=== PATIENT | female | born 1945 ===

== ENCOUNTER 2017-02-27 15:29 | Inpatient (IN) ==
--- OUTSIDE RECORDS SUMMARY | 2017-02-27 16:19 | External Medical Summary | Summary of Care ---
:1945 Author Name Chiqui Ferreira M.D. Address Unavailable Unavailable , Care Team Providers Name Role Phone Chiqui Ferreira M.D. Unavailable Unavailable Juan Pablo Warren Unavailable Unavailable Unavailable Unavailable Unavailable Functional Status Functional Status Health Issues Name Dates Details Functional status health issues are not documented Status: Cognitive Status Health Issues Name Dates Details Cognitive status health issues are not documented Status: Problems Name Dates Details Encounter for screening for malignant neoplasm of colon (V76.51, Z12.11) Status: Active Iron (Fe) deficiency anemia (280.9, D50.9) Status: Active B12 deficiency (266.2, E53.8) Status: Active Diabetes mellitus (250.00, E11.9) Status: Active Hypertension (401.9, I10) Status: Active Asthma (493.90, J45.909) Status: Active Chronic obstructive pulmonary disease (496, J44.9) Status: Active Difficulty breathing (786.09, R06.89) Status: Active Hypothyroidism (244.9, E03.9) Status: Active Medications Name Dates Details Advair Diskus 250-50 MCG/DOSE Inhalation Aerosol Powder Breath Activated USE ONE INHALATION TWICE A DAY Quantity: 60 Refills: 12 Miguel Angel Ferreira M.D. Start 21-Jan-2011 Active MetFORMIN HCl - 1000 MG Oral Tablet Take one tablet by mouth twice a day Quantity: 60 Refills: 11 Miguel Angel Ferreira M.D. Start 27-Mar-2011 Active Levothyroxine Sodium 112 MCG Oral Tablet TAKE 1 TABLET DAILY. Quantity: 30 Refills: 11 Miguel Angel Ferreira M.D. Start 27-Mar-2011 Active Furosemide 40 MG Oral Tablet TAKE ONE TABLET BY MOUTH DAILY IN THE MORNING Quantity: 30 Refills: 0 Miguel Angel Ferreira M.D. Start 18-Nov-2011 Active Cyanocobalamin 1000 MCG/ML Injection Solution INJECT INTRAMUSCULARLY EVERY TWO WEEKS DIRECTED Quantity: 12 Refills: 0 Miguel Angel Ferreira M.D. Start 02-Apr-2012 Active Metoprolol Succinate ER 50 MG Oral Tablet Extended Release 24 Hour TAKE 1 TABLET DAILY. Quantity: 30 Refills: 12 Hanna ChapmanMiguel Angel Iverson Chiqui Start Active Syringes 3ml syringe 25gauge, 1-1and 1/2 inch needle to use for monthly B12 injections Quantity: 30 Refills: 11 Marileethi AriMiguel Angel Iverson Chiqui Start 15-Oct-2012 Active Klor-Con M20 20 MEQ Oral Tablet Extended Release take one tablet by mouth every day Quantity: 30 Refills: 11 Hanna JulesMiguel Angel Start 05-Jan-2013 Active Allergies and Adverse Reactions Name Dates Details No Known Drug Allergies (Allergy) Status: Active Procedures Procedure Dates Details Procedures not documented Immunization Name Dates Details Fluzone Quadrivalent 0.5 ML Intramuscular Suspension on: 23-Dec-2012 Lot #: [id number] Social History Name Dates Details - Status: Smoking Status Name Dates Details Former smoker Vital Signs Date Test Result Details 03-Jan-2016 10:51 BP Systolic 136 mm[Hg] Status: Comments: Location: ; Position: BP Diastolic 82 mm[Hg] Status: Comments: Location: ; Position: Heart Rate 78 /min Status: Comments: Location: ; Physical Findings 20 Status: Comments: Respiration Height 60 in Status: Weight 170 lb Status: Physical Findings 98 Status: Comments: O2 Saturation Body Mass Index Calculated 33.2 kg/m2 Status: Body Surface Area Calculated 1.74 m2 Status: Results Date Description Value Details Results not documented Plan of Care Name Dates Details Planned Observations Planned Goals not documented Planned Encounters Appointment; Provider: Miguel Angel Ferreira M.D. On 06-Mar-2016 10:45 Interventions Provided Medication ChangesLevothyroxine Sodium 112 MCG Oral Tablet - RenewMetFORMIN HCl - 1000 MG Oral Tablet - Renew Instructions Name Dates Details Instructions not documented Encounters Appointment; Miguel Angel Ferreira M.D. On 22-Nov-2015 Encounter Diagnosis: Problem not documented 10:45
--- OUTSIDE RECORDS SUMMARY | 2017-02-27 16:19 | External Medical Summary | Summary of Care ---
[...] neoplasm of colon (V76.51, Z12.11) Status: Active Asthma (493.90, J45.909) Status: Active Difficulty breathing (786.09, R06.89) Status: Active B12 deficiency (266.2, E53.8) Status: Active Hypertension (401.9, I10) Status: Active Chronic obstructive pulmonary disease (496, J44.9) Status: Active Diabetes mellitus (250.00, E11.9) Status: Active Hypothyroidism (244.9, E03.9) Status: Active Iron (Fe) deficiency anemia (280.9, D50.9) Status: Active Medications Name Dates Details Advair [...] 12 Refills: 0 Miguel Angel Ferreira M.D. 02-Apr-2012 Active Metoprolol Succinate ER 50 MG Oral Tablet Extended Release 24 Hour TAKE 1 TABLET DAILY. Quantity: 30 Refills: 11 Miguel Angel Ferreira M.D. Start Active Syringes 3ml syringe 25gauge, 1-1and 1/2 inch needle to use for monthly B12 injections Quantity: 30 Refills: 11 Miguel Angel Ferreira M.D. Start 15-Oct-2012 Active Klor-Con M20 20 MEQ Oral Tablet Extended Release take one tablet by mouth every day Quantity: 30 Refills: 11 Miguel Angel Ferreira M.D. Start 05-Jan-2013 Active Pioglitazone HCl - 30 MG Oral Tablet take one tablet by mouth every day Quantity: 30 Refills: 10 Miguel Angel Ferreira M.D. Start 06-Mar-2016 Active Allergies and Adverse Reactions Name Dates Details No Known Drug Allergies (Allergy) Status: Active Past Medical History Name Dates Details B12 deficiency (266.2, E53.8) Status: Active Chronic obstructive pulmonary disease (496, J44.9) Status: Active Diabetes mellitus (250.00, E11.9) Status: Active Hypertension (401.9, I10) Status: Active Hypothyroidism (244.9, E03.9) Status: Active Procedures Procedure Dates Details History of Tonsillectomy History of Appendectomy History of Total Abdominal Hysterectomy History of Knee Replacement Procedures not documented Immunization Name Dates Details Fluzone Quadrivalent 0.5 ML Intramuscular Suspension on: 23-Dec-2012 Lot #: [id number] Family History Mother Name Dates Details Family history of myocardial infarction (V17.3, Z82.49) Status: Active Father Name Dates Details Family history of CHF (NYHA class III, ACC/AHA stage C) (428.0, I50.9) Status: Active Social History Name Dates Details - Status: Smoking Status Name Dates Details Former smoker Vital Signs Date Test Result Details 06-Mar-2016 10:42 BP Systolic 150 mm[Hg] Status: Comments: Location: ; Position: BP Diastolic 82 mm[Hg] Status: Comments: Location: ; Position: Heart Rate 113 /min Status: Comments: Location: ; Physical Findings 97 Status: Comments: O2 Saturation Results Date Description Value Details 06-Mar-2016 07:57 CBC w/ Auto Diff 7150 Comments: Fastin hours WBC 8.9 K/uL Range: 4.5-11.0 RBC 4.59 mil/uL Range: 3.60-5.00 HGB 12.5 g/dL Range: 12.0-16.0 HCT 38.7 % Range: 36.0-48.0 MCV 84.3 fL Range: 80.0-99.0 MCH 27.3 pg Range: 27.3-32.5 MCHC 32.4 % Range: 32.0-36.0 RDW 16.1 % (Above high threshold) Range: 11.6-14.8 PLATELETS 250 K/uL Range: 150-400 MPV 9.9 fL Range: 6.0-11.0 %NEUTRO 63.2 % Range: 37.0-80.0 %LYMPHS 27.2 % Range: 13.0-50.0 %MONO 4.8 % Range: 0.0-12.0 %EOS 3.0 % Range: 0.0-7.0 %BASO 0.5 % Range: 0.0-2.5 %JAGRUTI 1.3 % Range: 0.0-5.0 NEUTRO 5.6 K/uL Range: 2.0-6.9 LYMPHS 2.4 K/uL Range: 0.6-3.4 MONOS 0.4 K/uL Range: 0.0-0.9 EOS 0.3 K/uL Range: 0.0-0.7 BASO 0.0 K/uL Range: 0.0-0.2 08:22 GLUCOSE 1100 Comments: Fastin hours GLUCOSE 239 mg/dL (Above high threshold) Range: 70-100 08:22 CREATININE, SERUM 1135 Comments: Fastin hours CREATININE, SERUM 0.75 mg/dL Range: 0.55-1.02 EST GFR, NON-AFR CHADIAN >60 ml/min Range: >60 Comments: EST GFR is reported in ml/min per 1.73 m2 of body surface area. ----- 08:22 ELECTROLYTES 1230 Comments: Fastin hours SODIUM 139 mmol/L Range: 133-144 POTASSIUM 3.9 mmol/L Range: 3.5-5.1 CHLORIDE 101 mmol/L Range: 98-110 CARBON DIOXIDE 28.0 mmol/L Range: 23.0-33.0 ANION GAP 10 mmol/L Range: 6-16 08:22 LIPID PROFILE 1184 Comments: Fastin hours CHOLESTEROL 183 mg/dL Range: <200 TRIGLYCERIDES 79 mg/dL Range: 30-200 HDL Cholesterol 59 mg/dL Range: >39 NON HDL CHOLESTEROL 124 CARDIAC RSK FACTOR 3.1 units (Below low threshold) Range: 4.4-5.0 LDL - CALCULATED 108 mg/dL Range: 0-130 08:55 HEMOGLOBIN A1C 3507 Comments: Fastin hours Hemoglobin A1C 10.0 % ESTIMATED AVG. GLUCOSE 240 Plan of Care Name Dates Details Planned Observations Planned Goals not documented Planned Encounters Appointment; Provider: Miguel Angel Ferreira M.D. On 04-Jun-2016 10:45 Interventions Provided Medication ChangesMetoprolol Succinate ER 50 MG Oral Tablet Extended Release 24 Hour - RenewPioglitazone HCl - 30 MG Oral Tablet - Start Instructions Name Dates Details Instructions not documented Encounters Appointment; Miguel Angel Ferreira M.D. On 03-Jan-2016 Encounter Diagnosis: Problem not documented 11:00 Appointment; Miguel Angel Ferreira M.D. On 22-Nov-2015 Encounter Diagnosis: Problem not documented 10:45
--- OUTSIDE RECORDS SUMMARY | 2017-02-27 16:19 | External Medical Summary | Summary of Care ---
[...] neoplasm of colon (V76.51, Z12.11) Status: Active Difficulty breathing (786.09, R06.89) Status: Active Asthma (493.90, J45.909) Status: Active Iron (Fe) deficiency anemia (280.9, D50.9) Status: Active Chronic obstructive pulmonary disease (496, J44.9) Status: Active B12 deficiency (266.2, E53.8) Status: Active Diabetes mellitus (250.00, E11.9) Status: Active Hypertension (401.9, I10) Status: Active Medications Name Dates Details Advair Diskus 250-50 MCG/DOSE Inhalation Aerosol Powder Breath Activated USE ONE INHALATION TWICE A DAY Quantity: 60 Refills: 12 Miguel Angel Ferreira M.D. Start 21-Jan-2011 Active MetFORMIN HCl - 1000 MG Oral Tablet TAKE 1 TABLET TWICE DAILY. Quantity: 60 Refills: 6 Miguel Angel Ferreira M.D. Start 27-Mar-2011 Active Levothyroxine Sodium 112 MCG Oral Tablet TAKE 1 TABLET DAILY. Quantity: 30 Refills: 6 Miguel Angel Ferreira M.D. Start 27-Mar-2011 Active [...] 1 TABLET DAILY. Quantity: 30 Refills: 12 Sourk M.DMiguel Angel Iverson Start Active Syringes 3ml syringe 25gauge, 1-1and 1/2 inch needle to use for monthly B12 injections Quantity: 30 Refills: 11 Miguel Angel Ferreira M.D. Start 15-Oct-2012 Active Klor-Con M20 20 MEQ Oral Tablet Extended Release take one tablet by mouth every day Quantity: 30 Refills: Miguel Angel Mckeon M.D. Start 05-Jan-2013 Active Allergies and Adverse Reactions Name Dates Details No Known Drug Allergies (Allergy) Status: Active Procedures Procedure Dates Details Procedures not documented Immunization Name Dates Details Fluzone Quadrivalent 0.5 ML Intramuscular Suspension on: 23-Dec-2012 Lot #: [id number] Social History Name Dates Details - Status: Smoking Status Name Dates Details Former smoker Vital Signs Date Test Result Details 22-Nov-2015 10:47 BP Systolic 150 mm[Hg] Status: Comments: Location: ; Position: BP Diastolic 84 mm[Hg] Status: Comments: Location: ; Position: Heart Rate 80 /min Status: Comments: Location: ; Physical Findings 98 Status: Comments: O2 Saturation Results Date Description Value Details 22-Nov-2015 11:45 CBC w/ Auto Diff 7150 WBC 8.7 K/uL Range: 4.5-11.0 RBC 4.49 mil/uL Range: 3.60-5.00 HGB 12.0 g/dL Range: 12.0-16.0 HCT 36.8 % Range: 36.0-48.0 MCV 81.9 fL Range: 80.0-99.0 MCH 26.8 pg (Below low threshold) Range: 27.3-32.5 MCHC 32.7 % Range: 32.0-36.0 RDW 15.2 % (Above high threshold) Range: 11.6-14.8 PLATELETS 267 K/uL Range: 150-400 MPV 9.2 fL Range: 6.0-11.0 %NEUTRO 74.3 % Range: 37.0-80.0 %LYMPHS 18.5 % Range: 13.0-50.0 %MONO 3.9 % Range: 0.0-12.0 %EOS 1.6 % Range: 0.0-7.0 %BASO 0.5 % Range: 0.0-2.5 %JAGRUTI 1.2 % Range: 0.0-5.0 NEUTRO 6.5 K/uL Range: 2.0-6.9 LYMPHS 1.6 K/uL Range: 0.6-3.4 MONOS 0.3 K/uL Range: 0.0-0.9 EOS 0.1 K/uL Range: 0.0-0.7 BASO 0.0 K/uL Range: 0.0-0.2 12:13 Comprehensive Metabolic Panel 1212 SODIUM 137 mmol/L Range: 133-144 POTASSIUM 4.1 mmol/L Range: 3.5-5.1 CHLORIDE 102 mmol/L Range: 98-110 CARBON DIOXIDE 26.8 mmol/L Range: 23.0-33.0 ANION GAP 8 mmol/L Range: 6-16 BUN 9 mg/dL Range: 7-18 CREATININE, SERUM 0.75 mg/dL Range: 0.55-1.02 BUN:CREATININE RATIO 12 EST GFR, >60 ml/min Range: >60 EST GFR, NON-AFR MALDIVIAN >60 ml/min Range: >60 Comments: EST GFR is reported in ml/min per 1.73 m2 of body surface area. ----- GLUCOSE 260 mg/dL (Above high Range: 70-100 threshold) ALK PHOSPHATASE 83 U/L Range: 46-116 TOTAL BILIRUBIN 0.30 mg/dL Range: 0.20-1.00 AST 15 U/L Range: 8-35 ALT 26 U/L Range: 14-59 ALBUMIN 3.5 g/dL Range: 3.4-5.0 TOTAL PROTEIN 7.1 g/dL Range: 6.4-8.2 A/G RATIO 1.0 units Range: 1.0-1.8 CALCIUM 8.6 mg/dL Range: 8.5-10.1 12:22 VITAMIN B12 3606 VITAMIN B12 475 pg/mL Range: 211-911 12:22 THYROID STIM. HORMONE 3602 THYROID STIM. HORMONE 2.889 uIU/mL Range: 0.550-4.780 Comments: No established reference ranges for infants and children &lt ;2 years of age----- 12:22 FREE T4 3604 FREE T4 0.75 ng/dL (Below low threshold) Range: 0.80-1.67 12:22 HEMOGLOBIN A1C 3507 Hemoglobin A1C 10.9 % ESTIMATED AVG. GLUCOSE 266 Plan of Care Name Dates Details Planned Observations Planned Goals not documented Planned Encounters Appointment; Provider: Miguel Angel Ferreira M.D. On 03-Jan-2016 11:00 Instructions Name Dates Details Instructions not documented Encounters Appointment; Miguel Angel Ferreira M.D. On 22-Nov-2015 Encounter Diagnosis: Problem not documented 10:45
--- OUTSIDE RECORDS SUMMARY | 2017-02-27 16:19 | External Medical Summary | Continuity of Care Document ---
:1945 Author Organization [facility] Allergies There is no data. Medications There is no data. 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 Encounters ACCT Visit Discharge Status Pt. Type Provider Facility Loc./Unit Complaint No. Date/Time [id number] 08/24/2014 09/23/2014 [place] [id number] 13:00:00 14:00:00 [facility] [id number] 03/28/2014 03/28/2014 [place] [id number] 10:15:00 23:59:59 [facility] [id number] 01/18/2014 03/27/2014 [place] [id number] 10:00:00 00:01:00 [facility] [id number] 01/06/2013 01/08/2013 DIS Outpatient [id number] 10:30:00 12:00:00 [id number] 05/19/2015 05/19/2015 CLS Outpatient [place] 09:26:00 23:59:59 [facility]
--- OUTSIDE RECORDS SUMMARY | 2017-02-27 16:19 | External Medical Summary | Summary of Care ---
[...] (Fe) deficiency anemia (280.9, D50.9) Status: Active Hypertension (401.9, I10) Status: Active Diabetes mellitus (250.00, E11.9) Status: Active Chronic obstructive pulmonary disease (496, J44.9) Status: Active Medications Name Dates Details Advair [...] WEEKS DIRECTED Quantity: 12 Refills: 0 Miguel nAgel Ferreira M.D. Start 02-Apr-2012 Active Metoprolol Succinate ER 50 MG Oral Tablet Extended Release 24 Hour TAKE 1 TABLET DAILY. Quantity: 30 Refills: 12 Miguel Angel Ferreira M.D. Start Active Syringes 3ml syringe 25gauge, 1-1and 1/2 inch needle to use for monthly B12 injections Quantity: 30 Refills: 11 Miguel Angel Ferreira M.D. Start 15-Oct-2012 Active Klor-Con M20 20 MEQ Oral Tablet Extended Release take one tablet by mouth every day Quantity: 30 Refills: 11 Miguel Angel Ferreira M.D. Start 05-Jan-2013 Active Allergies and Adverse Reactions Name Dates Details No Known Drug Allergies (Allergy) Status: Active Procedures Procedure Dates Details CBC w/ Auto Diff 7150 Ordered: 22-Nov-2015 VITAMIN B12 3606 Ordered: 22-Nov-2015 THYROID STIM. HORMONE 3602 Ordered: 22-Nov-2015 FREE T4 3604 Ordered: 22-Nov-2015 Comprehensive Metabolic Panel 1212 Ordered: 22-Nov-2015 HEMOGLOBIN A1C 3507 Ordered: 22-Nov-2015 Immunization Name Dates Details Fluzone Quadrivalent 0.5 ML Intramuscular Suspension on: 23-Dec-2012 Lot #: [id number] Social History Name Dates Details - Status: Smoking Status Name Dates Details Former smoker Vital Signs Date Test Result Details 22-Nov-2015 10:47 BP Systolic 150 mm[Hg] Status: Comments: Location: ; Position: BP Diastolic 84 mm[Hg] Status: Comments: Location: ; Position: Heart Rate 80 /min Status: Comments: Location: ; Physical Findings 98 Status: Comments: O2 Saturation Results Date Description Value Details Results not documented Plan of Care Name Dates Details Planned Observations Planned Goals not documented Planned Encounters Appointment; Provider: Miguel Angel Ferreira M.D. On 03-Jan-2016 11:00 Interventions Provided Labs/Procedures/ImagingCBC w/ Auto Diff 7150; To be Done: 22 Nov 2015Comprehensive Metabolic Panel 1212; To be Done: 22 Nov 2015FREE T4 3604; To be Done: 22 Nov 2015HEMOGLOBIN A1C 3507; To be Done: 22 Nov 2015THYROID STIM. HORMONE 3602; To be Done: 22 Nov 2015VITAMIN B12 3606; To be Done: 22 Nov 2015 Instructions Name Dates Details Instructions not documented Encounters Appointment; Miguel Angel Ferreira M.D. On 22-Nov-2015 Encounter Diagnosis: Problem not documented 10:45
--- OUTSIDE RECORDS SUMMARY | 2017-02-27 16:19 | External Medical Summary | Summary of Care ---
[...] obstructive pulmonary disease (496, J44.9) Status: Active Hypothyroidism (244.9, E03.9) Status: Active Iron (Fe) deficiency anemia (280.9, D50.9) Status: Active Diabetes mellitus (250.00, E11.9) Status: Active Medications Name Dates Details Advair [...] 1 TABLET DAILY. Quantity: 30 Refills: 11 Marileethi ShimaZayraZoëMiguel Angel Iverson Start Active Syringes 3ml syringe 25gauge, 1-1and 1/2 inch needle to use for monthly B12 injections Quantity: 30 Refills: 11 Marileethi ShimaMiguel Angel Sánchez Start 15-Oct-2012 Active Klor-Con M20 20 MEQ Oral Tablet Extended Release take one tablet by mouth every day Quantity: 30 Refills: 11 Marileethi AriMiguel Angel Iverson Start 05-Jan-2013 Active Pioglitazone HCl - 30 MG Oral Tablet take one tablet by mouth every day Quantity: 30 Refills: 10 Marileethi ShimaMiguel Angel Sánchez Start 06-Mar-2016 Active Allergies and Adverse Reactions [...] ML Intramuscular Suspension on: 23-Dec-2012 Lot #: [id number] Family History Mother Name Dates Details Family history of myocardial infarction (V17.3, Z82.49) Status: Active Father Name Dates Details Family history of CHF (NYHA class III, ACC/AHA stage C) (428.0, I50.9) Status: Active Social History Name Dates Details - Status: Smoking Status Name Dates Details Former smoker Vital Signs Date Test Result Details No Known Vitals to report Results Date Description Value Details Results not documented Plan of Care Name Dates Details Planned Observations Planned Goals not documented Instructions Name Dates Details Instructions not documented Encounters Appointment; Miguel Angel Ferreira M.D. On 06-Mar-2016 Encounter Diagnosis: Problem not documented 10:45 Appointment; Miguel Angel Ferreira M.D. On 03-Jan-2016 Encounter Diagnosis: Problem not documented 11:00 Appointment; Miguel Angel Ferreira M.D. On 22-Nov-2015 Encounter Diagnosis: Problem not documented 10:45
--- OUTSIDE RECORDS SUMMARY | 2017-02-27 16:19 | External Medical Summary | Summary of Care ---
[...] Active Diabetes mellitus (250.00, E11.9) Status: Active Asthma (493.90, J45.909) Status: Active Chronic obstructive pulmonary disease (496, J44.9) Status: Active Difficulty breathing (786.09, R06.89) Status: Active Hypothyroidism (244.9, E03.9) Status: Active Hypertension (401.9, I10) Status: Active Medications Name Dates Details Advair Diskus 250-50 MCG/DOSE Inhalation Aerosol Powder Breath Activated USE ONE INHALATION TWICE A DAY Quantity: 60 Refills: 12 Miguel Angel Ferreira M.D. Start 21-Jan-2011 Active Furosemide 40 MG Oral Tablet TAKE [...] by mouth every day Quantity: 30 Refills: Cong Ferreira Jorge AMiguel Angel Jaqueline 05-Jan-2013 Active Levothyroxine Sodium 112 MCG Oral Tablet TAKE 1 TABLET DAILY. Quantity: 30 Refills: Cong Marileethi Jorge AMiguel Angel Jaqueline 27-Mar-2011 Active MetFORMIN HCl - 1000 MG Oral Tablet Take one tablet by mouth twice a day Quantity: 60 Refills: Cong Hanna Jules Miguel Angel Florian Jaqueline 27-Mar-2011 Active Allergies and Adverse Reactions Name Dates Details No Known Drug Allergies (Allergy) Status: Active Procedures Procedure Dates Details HEMOGLOBIN A1C 3507 Ordered: 20-Feb-2016 GLUCOSE 1100 Ordered: 20-Feb-2016 ELECTROLYTES 1230 Ordered: 20-Feb-2016 CREATININE, SERUM 1135 Ordered: 20-Feb-2016 LIPID PROFILE 1184 Ordered: 20-Feb-2016 Immunization Name Dates Details Fluzone Quadrivalent 0.5 ML Intramuscular Suspension on: 23-Dec-2012 Lot #: [id number] Social History Name Dates Details - Status: Smoking Status Name Dates Details Former smoker Vital Signs Date Test Result Details No Known Vitals to report Results Date Description Value Details 06-Mar-2016 07:57 [...] Range: 0.0-0.7 BASO 0.0 K/uL Range: 0.0-0.2 Plan of Care Name Dates Details Planned Observations Planned Goals not documented Planned Encounters Appointment; Provider: Miguel Angel Ferreira M.D. On 06-Mar-2016 10:45 Instructions Name Dates Details Instructions not documented Encounters Appointment; Miguel Angel Ferreira M.D. On 03-Jan-2016 Encounter Diagnosis: Problem not documented 11:00 Appointment; Miguel Angel Ferreira M.D. On 22-Nov-2015 Encounter Diagnosis: Problem not documented 10:45
--- OUTSIDE RECORDS SUMMARY | 2017-02-27 16:19 | External Medical Summary ---
:1945 Author Name GENERATED, SYSTEM Care Team Providers Name Role Phone MD ROGERS DAVID Primary Care Provider [phone] Reason For Visit Chief Complaint KNEE, LEG, BACK PAIN,WHOLE BODY BONE SCAN [place] [id number] - BONE SCA Social History Functional Status Vital Signs Results Problems Encounter Diagnosis No relevant problems exist. Encounters Encounter Diagnosis No relevant problems exist. Plan of Care Procedures No relevant procedures performed. Immunizations No immunizations administered or ordered. Hospital Course Hospital Discharge Instructions Allergies, Adverse Reactions, Alerts Latex Allergy has not been assessed.IV Contrast Allergy has not been assessed. Medication Medication reconciliation has not been performed.
[2017-02-27] MEDS ORDERED: HALOPERIDOL 0.5 MG TABLET PO PRN (16:38)
[2017-02-27] MEDS ORDERED: LORazepam 0.5 MG TABLET PO PRN (16:38)
[2017-02-27] MEDS ORDERED: LOPERAMIDE 2 MG CAPSULE PO PRN (16:40)
[2017-02-27] MEDS ORDERED: POLYETHYL GLYCOL 3350 17gm PACKET PO PRN (16:40)
[2017-02-27 18:07] VITALS: BMI 29.2
[2017-02-27] MEDS: LORazepam 1 MG TABLET PO SCH (20:06)
[2017-02-27] MEDS: FAMOTIDINE 20 MG TABLET PO SCH (20:06)
[2017-02-27] MEDS: METFORMIN 1,000 MG TABLET PO SCH (20:51)
[2017-02-28] MEDS: LORazepam 1 MG TABLET PO SCH (08:47)
[2017-02-28] MEDS: LEVOTHYROXINE 112 MCG TABLET PO SCH (08:47)
[2017-02-28] MEDS: METFORMIN 1,000 MG TABLET PO SCH ×2 (08:47→17:23)
[2017-02-28] MEDS: FAMOTIDINE 20 MG TABLET PO SCH ×3 (08:47→21:14)
[2017-02-28] MEDS: PIOGLITAZONE 30 MG TABLET PO SCH (08:48)
--- NOTE | 2017-02-28 09:24 | 24 Hour Neuropsychiatic Eval ---
Date of Admission: 02/27/17 16:09 Chief complaint: Recent agitation History of Present Illness: Patient is a 71-year-old , retired female who was admitted to [facility] from the [facility] on 02/27/17. Per hospitalist: "On February 19, 2017. Patient was admitted to [facility] following encephalopathy, confusion and findings of influenza A. She was medically treated and medically cleared, however, continued to have confusion." Patient lives at home with her long-time in [place] and he works part- time, leaving the patient home alone. Patient's son is on the unit and states that he has not seen the patient in person in many (10+) years but has had conversations with her on the phone and she would repeat things to him over and over. He would ask his father about it, who would deny any problems in the home. Her son is her medical DPOA. She also has an adult daughter who the family is estranged from. On interview, patient is quite pleasant and cooperative. She reports being in a good mood but is confused to time, place, situation. She denies SI, HI, AVH, paranoia, pain, change in sleep or appetite. She states she talked to a psychiatrist years ago but cannot remember what about. She does not have insight into behaviors or memory loss. Nursing staff report patient did have some agitation, mild combativeness yesterday evening. Per 's recent meeting with son: "[facility] met with pt's son/DPOA-HC (Jack Huerta Jr.). He was able to provide information for PS. He reports that this is the first time he has seen his parents in their home in 17 years though he talked with them regularly by phone. He signed DNR form. He reports pt. was born in [place], [place]. 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 She is and lives with her in their own home in [place], [place]. He still works part-time in pharmacy dept. at [employer] in [place]. Pt. has been left at home while he works. She has been able to provide meals and stays busy with needlework. Patient has two children. Jack Huerta Jr. lives in [place] and he maintains regular contact with pt. and her by phone. The patient is estranged from her daughter, Tatum, who lives in [place]. Patient is a transfer from [facility] where she was admitted due to flu like symptoms and recent fall. The family reports she has demonstrated increased confusion over past year. Patient has no history of abusing drugs, alcohol or tobacco. Pt. has never received any services from mental health provider. She does have a dog, Gali, with whom she is attached. The son is going to see about getting vaccine records from the [facility] and will try to bring the dog for a visit. The patient does not receive any community resources. She is not currently able to attend episcopal but was very active in the [employer]. The son is going to talk with the tax director and see if he/she will come and visit. 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 The son is not sure of patient's financial status. He is going to try and explore with the patient's about financial resources. The son states he knows the is hoping patient will be able to return home. They are hopeful she will qualify for skilled bed at [facility] in [place]. This SW explained about qualifications for d/c to SNU and that is is only a short term option. Encouraged son to educate himself about pt 's financial resources to pay for either LTC or to pay for help at home. Advised son that it is likely that the doctor will recommend patient have 24 hour care, which means pt. cannot be left at home alone while the works. Encouraged son to talk with traffic law attorney regarding financial planning and potential application for medicaid (if necessary). Provided names of facilities in and around the [facility]. Encouraged son to visit facilities. [facility] reviewed contents of proposed [place] plan. Son had no additional information to add or change on [place] plan and signed his name in agreement." Dementia: Memory Impairment, Poor Executive Functioning Reviewed: Home Medications, Allergies, Current Lab Data, Imaging Reports, Current EKG(s), Nursing Notes [facility] Patient Stated Medical History Dementia Yes Hypertension Yes Chronic Obstructive Pulmonary Yes Disease (COPD) Diabetes Mellitus Type 2 Yes Surgical History: Not able to obtain from patient Family History: Unobtainable from patient - Social History Smoking status: Never smoker Substance use type: does not use Alcohol intake frequency: does not drink Housing: house Household members: spouse service: No Current occupational status: retired Current residence: [place] Social history: Strengths: pleasant personality, good verbal communication, supportive family members ( and son) Review of Systems ROS unobtainable: other (Limited due to patient's cognitive difficulties) All systems: reviewed and no additional remarkable complaints except as stated - Constitutional Constitutional: Absent: fatigue - Cardiovascular Cardiovascular: Absent: chest pain - Respiratory Respiratory: Absent: dyspnea - Gastrointestinal Gastrointestinal: Absent: abdominal pain - Musculoskeletal Musculoskeletal: Absent: back pain - Neurological Neurological: Present: frequent falls (had at least 1 fall prior to recent hospitalization), memory loss - Psychiatric Psychiatric: Present: as per HPI, anxiety, behavioral changes. Absent: auditory hallucinations, hallucinations, homicidal ideation, suicidal ideation, visual hallucinations Mental Status Exam Vitals: Last Vital Signs Temp 97.2 F 02/27/17 20:23 Pulse 92 02/27/17 20:23 Resp 16 02/27/17 20:23 BP 157/78 H 02/27/17 20:23 Pulse Ox 97 02/27/17 20:23 Height: 1.65 m Weight: 79.9 kg - Mental Status Exam Muscle Strength/Tone: Normal Dressing: Casual Grooming: Fair Attitude: Cooperative Motor Activity: Normal, Other (does like to walk 10,000 steps per day and wants to pace when she becomes anxious - more of a coping mechanism) Speech: Normal Volume: Soft Rhythm: Appropriate Rhythm Sensory: Alert Orientation: Disoriented to time, Disoriented to place, Disoriented to situation , Oriented to person Mood: Euthymic Affect: Relaxed (during interview) Rate of Thoughts: Delayed Thought Organization: Confused Associations: Illogical Abstract Reasoning: Impaired, concrete Thought Content: Normal (No abnormal thought content elicited other than confusion) Perception/Psychotic: Perception Normal Language: Naming Impaired Fund of Knowledge: Poor fund of knowledge Memory: Poor-immediate, Poor-recent Suicidal Ideation: Denies Homicidal Ideation: Denies Insight: Impaired Judgement: Impaired Impulse Control: Other (Limited) - Laboratory Laboratory Results - last 24 hr 02/27/17 02/27/17 02/27/17 18:22 18:47 18:47 Glucometer Hemoglobin A1c 7.1 H Triglycerides 97 Cholesterol 157 LDL Cholesterol, Calc 73.6 VLDL Cholesterol 19.4 HDL Cholesterol 64 H Cholesterol/HDL Ratio 2.5 Folate 13.4 Ur Collection Type Urine, clean catch Urine Color Yellow Urine Clarity Clear Urine pH 5.5 Ur Specific [place] >=1.030 H Urine Protein Trace A Urine Glucose (UA) Negative Urine Ketones 2+ A Urine Occult Blood Negative Urine Nitrate Negative Urine Bilirubin 2+ A Urine Urobilinogen 0.2 Ur Leukocyte Esterase 1+ A Urine RBC 0-1 Urine WBC 3-5 Ur Squamous Epith Cells 20-50 Urine Bacteria Trace H Urine Mucus Present Ur Culture Indicated? Cult not indicated 02/28/17 08:20 Glucometer 85 Hemoglobin A1c Triglycerides Cholesterol LDL Cholesterol, Calc VLDL Cholesterol HDL Cholesterol Cholesterol/HDL Ratio Folate Ur Collection Type Urine Color Urine Clarity Urine pH Ur Specific [place] Urine Protein Urine Glucose (UA) Urine Ketones Urine Occult Blood Urine Nitrate Urine Bilirubin Urine Urobilinogen Ur Leukocyte Esterase Urine RBC Urine WBC Ur Squamous Epith Cells Urine Bacteria Urine Mucus Ur Culture Indicated? Assessment and Plan (1) Major neurocognitive disorder Problem details: due to Alzheimer's, moderate, with behavioral disturbance Current visit: Yes Status: Acute (2) Dyslipidemia Current visit: Yes Status: Acute (3) Hypertension Current visit: Yes Status: Acute (4) Diabetes mellitus, type II Current visit: Yes Status: Acute (5) COPD (chronic obstructive pulmonary disease) Current visit: Yes Status: Acute (6) Hypothyroidism Current visit: Yes Status: Acute Admit to [facility] for evaluation and stabilization; maintain safety and elopement precautions. CBC, CMP, TSH, Vitamin B12 levels ordered and reviewed prior to transfer from [place]. Have ordered HgbA1c, lipid panel, folate level here. On admission, decreased lorazepam from 1mg PO TID to 0.5mg PO TID; plan to taper further and discontinue if possible. Will monitor for any additional behaviors before further med management decisions. Will use standard unit PRNs rather than IM Geodon as used prior to transfer.
--- NOTE | 2017-02-28 11:21 | History & Physical Report ---
History of Present Illness Date: 02/28/17 Chief complaint: Dementia with behaviors HPI: Patient is a 71-year-old female who has a resides independently with her in [place] under the primary care of Dr. Juan Pablo Warren until recent acute illness. On February 19, 2017. Patient was admitted to [facility] following encephalopathy, confusion and findings of influenza A. She was medically treated and medically cleared, however, continued to have confusion. Further history obtained from her son, does reveal that patient has had a cognitive decline for the past 1 year. Her reports confusion and personality changes. Son states that he lives on the [facility] and has not been home to see his mother in 12 years. He recognizes during phone conversations that her cognition has indeed decline and patient repeats stories multiple times. Given these changes in her cognition and concern for safety at home. Patient was accepted to the [facility] unit for inpatient evaluation and treatment. She is pleasantly confused during examination. She does recognize her son at the bedside, however, is unable to give any other accurate information regarding her location, time. Review of Systems ROS unobtainable: due to mental status Past Medical History Patient Stated Medical History Dementia Hypertension COPD Diabetes Mellitus Type 2 Dyslipidemia Hypothyroidism Surgical History: Bilateral total knee arthroplasties. Hysterectomy Family History Updates: Unable to obtain - Social History Smoking status: Never smoker Substance use type: does not use Alcohol intake frequency: does not drink Housing: house Household members: spouse Social history: Prior to hospitalization patient resides independently with at home. Primary care provider, Dr. Juan Pablo Warren in [place] Medications Home Medications Medication Instructions Recorded Confirmed Type Acetaminophen SR [Tylenol 650 mg PO Q6H PRN 02/27/17 02/27/17 History Arthritis] Famotidine [Pepcid] 1 tab PO BID 02/27/17 02/27/17 History Fluticasone/Salmeterol 250/50 1 puff INH BID 02/27/17 02/27/17 History [Advair 250-50 Diskus] Ibuprofen [Motrin] 1 tab PO Q6H PRN 02/27/17 02/27/17 History Insulin Lispro [Humalog] 0 unit SQ SS 02/27/17 02/27/17 History Levothyroxine Tab [Synthroid] 112 mcg PO ACB 02/27/17 02/27/17 History Loperamide [Imodium] 2 mg PO QID PRN 02/27/17 02/27/17 History Ondansetron [Zofran Odt] 1 tab PO Q4HR PRN 02/27/17 02/27/17 History PEG 3350 17gm PACKET [Miralax] 17 gm PO DAILY PRN 02/27/17 02/27/17 History Pioglitazone [Actos] 1 tab PO DAILY 02/27/17 02/27/17 History Potassium Chloride [K-Dur] 1 tab PO BIDWM 02/27/17 02/27/17 History RX: LORazepam [Ativan] 1 mg PO TID 02/27/17 02/27/17 History RX: Metformin HCl 1,000 mg PO BIDWM 02/27/17 02/27/17 History RX: Metoprolol Succinate 50 mg PO DAILY 02/27/17 02/27/17 History Ziprasidone [Geodon] 10 mg IM BID PRN 02/27/17 02/27/17 History Allergies Allergy/AdvReac Type Severity Reaction Status Date / Time codeine Allergy Unknown Verified 02/27/17 17:09 saxagliptin [From Onglyza] Allergy Unknown Verified 02/27/17 17:09 Exam Vital Signs: Temperature 98 F 02/28/17 08:00 Pulse Rate 104 H 02/28/17 08:00 Respiratory Rate 16 02/28/17 08:00 Blood Pressure 150/88 H 02/28/17 08:00 Pulse Oximetry 99 02/28/17 08:00 Height/Weight/BMI: Height 1.65 m Weight 79.9 kg Body Mass Index 29.2 - Constitutional Present: no acute distress, well nourished, well developed - Routine HEENT Exam Eye: Present: EOMI ENT: Present: mucous membranes moist, dentition normal - Routine Respiratory Exam Present: CTA bilaterally. Absent: wheezes - Routine Cardiovascular Exam Present: RRR, S1, S2. Absent: murmur - Routine Abdominal Exam Present: soft, normoactive bowel sounds, non distended. Absent: tenderness - Routine Extremities Exam Present: full ROM - Routine Back/Spine/Pelvis Exam Back/Spine: Present: full ROM - Routine Skin Exam Present: intact, dry, warm - Routine Neurological Exam Present: alert, CN II-XII intact, altered mental status - Routine Psychiatric Exam Present: cooperative Assessment and Plan (1) Dementia with behavioral problem Current visit: Yes Status: Acute Assessment and Plan: Impression Dementia with behaviors Hypertension Dyslipidemia Type II diabetes COPD Hypothyroidism Plan Agree with admission to [facility] unit under the care of Dr. Lucio for dementia with behaviors. Did speak with patient's son who does voices concern for patient's discharge plan as he does not feel that patient is safe to go home with her . This is discussed with social media strategist, Nohemi Will monitor Accu-Cheks and continue on metformin twice a day. Monitor blood pressure, continue Toprol 50 MG daily. Continue with other home medications including levothyroxine, Actos, oral potassium supplementation. Reviewed admission laboratories. Urinalysis does reveal trace bacteria and 1+ leukocytes, however, there is presence of squamous epithelial cells recommend monitoring as patient is currently asymptomatic, would not indicate antimicrobial treatment. Current patient to practice. In unit activities and provide a safe environment. Hospital services will continue to follow patient and medically manage her existing comorbidities during her stay in the [facility] unit. At time of discharge medical care will return to her primary care provider, Dr. Juan Pablo Warren in [place] Resuscitation Status: Full Code - Time spent with patient Time with patient PN: 30 minutes Coordination of Care: >50% of visit spent providing counseling/coordination of care - Physician Narrative Physician: Poornima Solares MD Narrative: Date: 02/28/17 Time: 2229 I have independently evaluated and examined this patient. I reviewed the chart, the patient's history, and the CHARGE MACHINE OPERATOR/PA's documented findings as above. We discussed and formulated the assessment and plan as above with additions as below: Mrs. Huerta was resting when seen earlier this evening. She acknowledged my presence and mumbled a few words but really did not provide any history. She denied dyspnea or pain but offered no other response to questions. Conjugate gaze, sclera anicteric/conjunctiva clear, EOMI, facial structure symmetric Withdraws all 4 extremities to touch, spontaneously moving upper extremities- power not formally assessed Respirations nonlabored with good airflow, breath sounds clear Regular cardiac rhythm Outside data obtained at [place] reviewed where hemoglobin was initially 10.7 with MCV 79 chemistries were unremarkable. On 02/26 hemoglobin was reported to be 12.5 and CRP 0.7. Methylmalonic acid was pending at discharge. The patient had an MRI of the brain on 02/20 reported to show no acute intracranial pathology, generalized volume loss and chronic small vessel ischemic changes. Laboratory data obtained here includes A1c of 7.1, unremarkable lipid studies, folic acid 13.4, and concentrated urinalysis with +2 ketones Urine findings suggest patient may be somewhat dehydrated-monitor oral intake determine if clinical findings support the same. Initial Accu-Cheks suggest tight control-may require less restrictive diet or reduction in diabetes medications during hospitalization. Thank you for allowing us to participate in this patient's care. Hospital Course Summary Disclaimer: The visit summary below is not to be considered part of the above Progress Note.
[2017-02-28] MEDS: LORazepam 0.5 MG TABLET PO SCH ×3 (15:23→21:14)
[2017-03-01] MEDS: HALOPERIDOL 5 MG/ML INJECTION IM PRN (01:30)
[2017-03-01] MEDS: LEVOTHYROXINE 112 MCG TABLET PO SCH ×2 (09:49→11:06)
[2017-03-01] MEDS: PIOGLITAZONE 30 MG TABLET PO SCH ×2 (09:59→11:07)
[2017-03-01] MEDS: FAMOTIDINE 20 MG TABLET PO SCH ×3 (09:59→20:20)
[2017-03-01] MEDS: METFORMIN 1,000 MG TABLET PO SCH ×3 (09:59→16:53)
--- NOTE | 2017-03-01 10:40 | Neuropsych Progress Note ---
[facility] Subjective Date: 03/01/17 - Sujective/Severity of Illness Medications: Acetaminophen (Tylenol Arthritis) 650 mg PO Q6H PRN PRN Reason: Pain Famotidine (Pepcid) 20 mg PO BID [facility] Last Admin: 03/01/17 09:59 Dose: Not Given Haloperidol (Haldol) 0.5 mg PO Q6H PRN PRN Reason: Extreme agitation Haloperidol Lactate (Haldol) 0.5 mg IM Q6H PRN PRN Reason: Extreme agitation Last Admin: 03/01/17 01:30 Dose: 0.5 mg Levothyroxine Sodium (Synthroid) 112 mcg PO ACB [facility] Last Admin: 03/01/17 09:49 Dose: Not Given Loperamide HCl (Imodium) 2 mg PO QID PRN; Protocol PRN Reason: Diarrhea Lorazepam (Ativan) 0.5 mg PO Q6H PRN PRN Reason: Extreme agitation Lorazepam (Ativan Inj) 0.5 mg IM Q6H PRN PRN Reason: Extreme agitation Last Admin: 03/01/17 01:30 Dose: 0.5 mg Lorazepam (Ativan) 0.5 mg PO TID [facility] Last Admin: 02/28/17 21:14 Dose: Not Given Metformin HCl (Glucophage) 1,000 mg PO BIDWM [facility] Last Admin: 03/01/17 09:59 Dose: Not Given Metoprolol Succinate (Toprol Xl) 50 mg PO DAILY [facility] Last Admin: 03/01/17 09:59 Dose: Not Given Pioglitazone HCl (Actos) 30 mg PO DAILY [facility] Last Admin: 03/01/17 09:59 Dose: Not Given Polyethylene Glycol (Miralax) 17 gm PO DAILY PRN PRN Reason: Constipation Potassium Chloride (K-Dur) 20 meq PO BIDWM [facility] Last Admin: 03/01/17 09:59 Dose: Not Given Fluticasone/Salmeterol (Advair Diskus) 1 puff ORAL INH BID [facility] Last Admin: 03/01/17 09:59 Dose: Not Given Subjective: Pt seen and chart examined. Nursing reports pt does very well during the day but became agitated, confused and combative at night. Pt did not sleep well and was given IM Haldol and Ativan at 0130 for aggression. On face to face this morning the pt is irritable and confused. She is trying to get out of bed and is slow to respond to redirection. She voices no concerns and is only oriented to self Start Time: 09:00 Stop Time: 09:15 Mental Status Exam Vitals: Last Vital Signs Temp 97.0 F 02/28/17 20:00 Pulse 82 02/28/17 20:00 Resp 12 02/28/17 20:39 BP 109/86 02/28/17 20:00 Pulse Ox 96 02/28/17 20:00 Height: 1.65 m Weight: 79.9 kg - Mental Status Exam Muscle Strength/Tone: Normal Dressing: Casual Grooming: Fair Attitude: Guarded Motor Activity: Agitation, Other (does like to walk 10,000 steps per day and wants to pace when she becomes anxious - more of a coping mechanism) Speech: Slowed Volume: Soft Rhythm: Appropriate Rhythm Orientation: Disoriented to time, Disoriented to place, Disoriented to situation , Oriented to person Mood: Irritable Rate of Thoughts: Delayed Thought Organization: Confused Associations: Illogical Abstract Reasoning: Impaired, concrete Thought Content: Normal (No abnormal thought content elicited other than confusion) Perception/Psychotic: Perception Normal Language: Naming Impaired Fund of Knowledge: Poor fund of knowledge Memory: Poor-immediate, Poor-recent Suicidal Ideation: Denies Homicidal Ideation: Denies Insight: Impaired Judgement: Impaired Impulse Control: Other (Limited) - Laboratory Laboratory Results - last 24 hr 02/28/17 02/28/17 02/28/17 11:55 17:27 20:51 Glucometer 117 112 92 Assessment and Plan (1) Major neurocognitive disorder Problem details: due to Alzheimer's, moderate, with behavioral disturbance Current visit: Yes Status: Acute (2) Dyslipidemia Current visit: Yes Status: Acute (3) Hypertension Current visit: Yes Status: Acute (4) Diabetes mellitus, type II Current visit: Yes Status: Acute (5) COPD (chronic obstructive pulmonary disease) Current visit: Yes Status: Acute (6) Hypothyroidism Current visit: Yes Status: Acute Hospital Course Summary Disclaimer: The visit summary below is not to be considered part of the above Progress Note. Hospital Course: Pt was confused and agitated last night and appears to be sundowning as she does well during the day. Will continue use of PRN's for now and see if symptoms resolve as delirium improves
[2017-03-01] MEDS: LORazepam 0.5 MG TABLET PO SCH ×3 (11:07→20:21)
[2017-03-01] MEDS ORDERED: LORazepam INTENSOL 1mg/0.5ml ORAL LIQUID SL PRN (19:31)
[2017-03-02] MEDS: LEVOTHYROXINE 112 MCG TABLET PO SCH (08:06)
[2017-03-02] MEDS: METFORMIN 1,000 MG TABLET PO SCH ×2 (08:06→19:05)
[2017-03-02] MEDS: PIOGLITAZONE 30 MG TABLET PO SCH (08:06)
[2017-03-02] MEDS: LORazepam 0.5 MG TABLET PO SCH ×3 (08:06→20:16)
[2017-03-02] MEDS: FAMOTIDINE 20 MG TABLET PO SCH ×2 (08:07→20:15)
--- NOTE | 2017-03-02 11:57 | Neuropsych Progress Note ---
[facility] Subjective Date: 03/02/17 - Sujective/Severity of Illness Medications: Acetaminophen (Tylenol Arthritis) 650 mg PO Q6H PRN PRN Reason: Pain Last Admin: 03/02/17 08:06 Dose: 650 mg Famotidine (Pepcid) 20 mg PO BID [facility] Last Admin: 03/02/17 08:07 Dose: 20 mg Haloperidol (Haldol) 0.5 mg PO Q6H PRN PRN Reason: Extreme agitation Haloperidol Lactate (Haldol) 0.5 mg IM Q6H PRN PRN Reason: Extreme agitation Last Admin: 03/01/17 01:30 Dose: 0.5 mg Levothyroxine Sodium (Synthroid) 112 mcg PO ACB [facility] Last Admin: 03/02/17 08:06 Dose: 112 mcg Loperamide HCl (Imodium) 2 mg PO QID PRN; Protocol PRN Reason: Diarrhea Lorazepam (Ativan) 0.5 mg PO Q6H PRN PRN Reason: Extreme agitation Lorazepam (Ativan Inj) 0.5 mg IM Q6H PRN PRN Reason: Extreme agitation Last Admin: 03/01/17 01:30 Dose: 0.5 mg Lorazepam (Ativan) 0.5 mg PO TID [facility] Last Admin: 03/02/17 08:06 Dose: 0.5 mg Lorazepam (Ativan Intensol) 0.5 mg SL TID PRN PRN Reason: Refusing scheduled PO tab Last Admin: 03/01/17 19:38 Dose: 0.5 mg Metformin HCl (Glucophage) 1,000 mg PO BIDWM [facility] Last Admin: 03/02/17 08:06 Dose: 1,000 mg Metoprolol Succinate (Toprol Xl) 50 mg PO DAILY [facility] Last Admin: 03/02/17 08:06 Dose: 50 mg Pioglitazone HCl (Actos) 30 mg PO DAILY [facility] Last Admin: 03/02/17 08:06 Dose: 30 mg Polyethylene Glycol (Miralax) 17 gm PO DAILY PRN PRN Reason: Constipation Potassium Chloride (K-Dur) 20 meq PO BIDWM [facility] Last Admin: 03/02/17 08:07 Dose: 20 meq Fluticasone/Salmeterol (Advair Diskus) 1 puff ORAL INH BID [facility] Last Admin: 03/02/17 08:07 Dose: 1 puff Subjective: Pt seen and chart examined. Nursing reports pt is doing well. Slept well and has a good appetite. No behaviors noted. On face to face the pt is pleasant but confused. She is only oriented to self. Did not remember her son who was visiting. Denies any pain and voices no concerns at this time Start Time: 10:30 Stop Time: 10:45 Mental Status Exam Vitals: Last Vital Signs Temp 97.3 F 03/02/17 07:23 Pulse 104 H 03/02/17 07:23 Resp 20 03/02/17 07:23 BP 135/77 03/02/17 07:23 Pulse Ox 99 03/02/17 07:23 Height: 1.65 m Weight: 79.9 kg - Mental Status Exam Muscle Strength/Tone: Normal Dressing: Casual Grooming: Fair Attitude: Cooperative Motor Activity: Normal Eye Contact: Fair Speech: Slowed Volume: Soft Rhythm: Appropriate Rhythm Orientation: Disoriented to time, Disoriented to place, Disoriented to situation , Oriented to person Mood: Euthymic Affect: Happy Rate of Thoughts: Delayed Thought Organization: Confused Associations: Illogical Abstract Reasoning: Impaired, concrete Thought Content: Normal (No abnormal thought content elicited other than confusion) Perception/Psychotic: Perception Normal Language: Naming Impaired Fund of Knowledge: Poor fund of knowledge Memory: Poor-immediate, Poor-recent Suicidal Ideation: Denies Homicidal Ideation: Denies Insight: Impaired Judgement: Impaired Impulse Control: Other (Limited) - Laboratory Laboratory Results - last 24 hr 03/01/17 03/01/17 03/01/17 11:14 16:52 19:31 Glucometer 118 123 136 03/02/17 03/02/17 07:14 11:05 Glucometer 150 148 Assessment and Plan (1) Major neurocognitive disorder Problem details: due to Alzheimer's, moderate, with behavioral disturbance Current visit: Yes Status: Acute (2) Dyslipidemia Current visit: Yes Status: Acute (3) Hypertension Current visit: Yes Status: Acute (4) Diabetes mellitus, type II Current visit: Yes Status: Acute (5) COPD (chronic obstructive pulmonary disease) Current visit: Yes Status: Acute (6) Hypothyroidism Current visit: Yes Status: Acute Hospital Course Summary Disclaimer: The visit summary below is not to be considered part of the above Progress Note. Hospital Course: 03/01/17 Pt was confused and agitated last night and appears to be sundowning as she does well during the day. Will continue use of PRN's for now and see if symptoms resolve as delirium improves 03/02/17 Pt improved. No behaviors noted. Continue current care
[2017-03-03] MEDS: LEVOTHYROXINE 112 MCG TABLET PO SCH (06:27)
[2017-03-03] MEDS: METFORMIN 1,000 MG TABLET PO SCH ×2 (08:31→17:53)
[2017-03-03] MEDS: FAMOTIDINE 20 MG TABLET PO SCH ×2 (08:31→18:43)
[2017-03-03] MEDS: PIOGLITAZONE 30 MG TABLET PO SCH (08:32)
[2017-03-03] MEDS: LORazepam 0.5 MG TABLET PO SCH ×2 (08:32→18:43)
--- NOTE | 2017-03-03 14:15 | Neuropsych Progress Note ---
Generations Subjective Date: 03/03/17 - Sujective/Severity of Illness Medications: Acetaminophen (Tylenol Arthritis) 650 mg PO Q6H PRN PRN Reason: Pain Last Admin: 03/02/17 14:17 Dose: 650 mg Famotidine (Pepcid) 20 mg PO BID [facility] Last Admin: 03/03/17 08:31 Dose: 20 mg Haloperidol (Haldol) 0.5 mg PO Q6H PRN PRN Reason: Extreme agitation Haloperidol Lactate (Haldol) 0.5 mg IM Q6H PRN PRN Reason: Extreme agitation Last Admin: 03/01/17 01:30 Dose: 0.5 mg Levothyroxine Sodium (Synthroid) 112 mcg PO ACB [facility] Last Admin: 03/03/17 06:27 Dose: 112 mcg Loperamide HCl (Imodium) 2 mg PO QID PRN; Protocol PRN Reason: Diarrhea Lorazepam (Ativan) 0.5 mg PO Q6H PRN PRN Reason: Extreme agitation Lorazepam (Ativan Inj) 0.5 mg IM Q6H PRN PRN Reason: Extreme agitation Last Admin: 03/01/17 01:30 Dose: 0.5 mg Lorazepam (Ativan) 0.5 mg PO TID [facility] Last Admin: 03/03/17 08:32 Dose: 0.5 mg Lorazepam (Ativan Intensol) 0.5 mg SL TID PRN PRN Reason: Refusing scheduled PO tab Last Admin: 03/01/17 19:38 Dose: 0.5 mg Metformin HCl (Glucophage) 1,000 mg PO BIDWM [facility] Last Admin: 03/03/17 08:31 Dose: 1,000 mg Metoprolol Succinate (Toprol Xl) 50 mg PO DAILY [facility] Last Admin: 03/03/17 08:32 Dose: 50 mg Pioglitazone HCl (Actos) 30 mg PO DAILY [facility] Last Admin: 03/03/17 08:32 Dose: 30 mg Polyethylene Glycol (Miralax) 17 gm PO DAILY PRN PRN Reason: Constipation Potassium Chloride (K-Dur) 20 meq PO BIDWM [facility] Last Admin: 03/03/17 08:32 Dose: 20 meq Fluticasone/Salmeterol (Advair Diskus) 1 puff ORAL INH BID [facility] Last Admin: 03/03/17 10:30 Dose: 1 puff Subjective: Patient seen and chart reviewed. Care discussed with treatment team. On interview, patient is with son in dayroom and reports that she feels great. She is oriented to self only but denies any emotional or physical complaint. She reports that her mood is "great." She denies any SI, HI, or AVH. She denies any adverse side effects due to psychotropic medications. Nursing staff report patient slept 6.75 hours overnight uninterrupted other than 2 trips to the restroom. She seems to sundown and has been more physically aggressive (hitting, kicking, etc.) with cares in the evening. Patient takes her medications crushed in food. VSS. No psychotropic PRNs required in the past 24 hours. Family meeting was held with treatment team and patient's son/ALBERT Santiago. He states that he would like to have his mother discharged back to home once stabilized. His father is quitting his part-time job so that he can provide 24/ 7 supervision and he is making arrangements to see if he can transfer his job to [place] as well. Discussed diagnosis, prognosis, safety recommendations - need for 24/7 supervision, no access to medications/firearms, risks involved if this were not adhered to. Also discussed necessary care and what this requires with nursing staff available for questions. He expressed understanding of all of the above. Start Time: 11:00 Stop Time: 11:40 Care: >50% of this visit spent in counseling/coordination care. (Family meeting with son) Mental Status Exam Vitals: Last Vital Signs Temp 96.9 F 03/03/17 08:00 Pulse 109 H 03/03/17 08:00 Resp 18 03/03/17 10:30 BP 144/72 H 03/03/17 08:00 Pulse Ox 99 03/03/17 08:00 Height: 1.65 m Weight: 79.9 kg - Mental Status Exam Muscle Strength/Tone: Normal Dressing: Casual Grooming: Fair Attitude: Cooperative Motor Activity: Normal Eye Contact: Fair Speech: Slowed Volume: Soft Rhythm: Appropriate Rhythm Orientation: Disoriented to time, Disoriented to place, Disoriented to situation , Oriented to person Mood: Euthymic (labile affect - sundowns in the evening) Rate of Thoughts: Delayed Thought Organization: Confused Associations: Illogical Abstract Reasoning: Impaired, concrete Thought Content: Normal (No abnormal thought content elicited other than confusion) Perception/Psychotic: Perception Normal Language: Naming Impaired Fund of Knowledge: Poor fund of knowledge Memory: Poor-immediate, Poor-recent Suicidal Ideation: Denies Homicidal Ideation: Denies Insight: Impaired Judgement: Impaired Impulse Control: Poor - Laboratory Laboratory Results - last 24 hr 03/02/17 03/02/17 03/03/17 18:05 20:59 06:36 Glucometer 152 123 119 Assessment and Plan (1) Major neurocognitive disorder Problem details: due to Alzheimer's, moderate, with behavioral disturbance R/O mixed frontotemproal disease Current visit: Yes Status: Acute (2) Dyslipidemia Current visit: Yes Status: Acute (3) Hypertension Current visit: Yes Status: Acute (4) Diabetes mellitus, type II Current visit: Yes Status: Acute (5) COPD (chronic obstructive pulmonary disease) Current visit: Yes Status: Acute (6) Hypothyroidism Current visit: Yes Status: Acute Will taper Ativan to 0.5mg PO at HS only and monitor response; will likely need additional medication due to sundowning. Hospital Course Summary Disclaimer: The visit summary below is not to be considered part of the above Progress Note. Hospital Course: At admission: Lorazepam tapered from 1mg PO TID to 0.5mg PO TID with plan to further taper/discontinue. 03/01/17 Pt was confused and agitated last night and appears to be sundowning as she does well during the day. Will continue use of PRN's for now and monitor behavior. 03/02/17 Pt improved. No behaviors noted. Continue current care. 03/03/16 Psych: Will taper Ativan to 0.5mg PO at HS only and monitor response; will likely need additional medication due to sundowning.
[2017-03-03] MEDS ORDERED: LORazepam INTENSOL 1mg/0.5ml ORAL LIQUID SL PRN (14:18)
--- NOTE | 2017-03-03 17:22 | Progress Note ---
- Date 03/03/17 Subjective: Linda was in the dayroom. She asked where I was from and a few minutes later asked me again. She states that she's feeling much better. Her breathing has improved and she's sleeping better. She denies abdominal pain or nausea though her intake has been variable. She declined a physical exam. Objective Vital signs: Temperature 97.0 F 03/03/17 16:00 Pulse Rate 87 03/03/17 16:00 Respiratory Rate 16 03/03/17 16:00 Blood Pressure 166/70 H 03/03/17 16:00 Pulse Oximetry 100 03/03/17 16:00 Height/Weight/BMI: Height 1.65 m Weight 79.9 kg Body Mass Index 29.2 - Constitutional Present: no acute distress, well nourished, well developed - Routine HEENT Exam Head: Present: normocephalic Eye: Absent: conjunctival icterus, scleral injection - Routine Respiratory Exam Comments: breathing comfortably on room air and in no distress - Routine Extremities Exam Present: no edema, pulses intact, normal capillary refill. Absent: calf tenderness - Routine Musculoskeletal Exam Musculoskeletal: Present: moving extremities well - Routine Skin Exam Present: intact, dry, warm - Routine Neurological Exam Present: alert, normal speech - Routine Psychiatric Exam Present: cooperative Assessment and Plan (1) Dementia with behavioral problem Current visit: Yes Status: Acute Assessment and Plan: Impression Dementia with behaviors Hypertension Dyslipidemia Type II diabetes COPD Hypothyroidism Plan BP occasionally elevated; otherwise medically stable BGM under good control Psych notes reviewed - lorazepam being tapered - Physician Narrative Narrative: Date: 03/03/17 Time: 1718 Hospital Course Summary Disclaimer: The visit summary below is not to be considered part of the above Progress Note. Hospital Course: At admission: Lorazepam tapered from 1mg PO TID to 0.5mg PO TID with plan to further taper/discontinue. 03/01/17 Pt was confused and agitated last night and appears to be sundowning as she does well during the day. Will continue use of PRN's for now and monitor behavior. 03/02/17 Pt improved. No behaviors noted. Continue current care. 03/03/16 Psych: Will taper Ativan to 0.5mg PO at HS only and monitor response; will likely need additional medication due to sundowning.
[2017-03-04] MEDS: LORazepam 0.5 MG TABLET PO SCH ×3 (01:26→21:18)
[2017-03-04] MEDS: FAMOTIDINE 20 MG TABLET PO SCH ×4 (01:26→21:18)
[2017-03-04] MEDS: LEVOTHYROXINE 112 MCG TABLET PO SCH ×2 (06:32→07:36)
[2017-03-04] MEDS: HALOPERIDOL 5 MG/ML INJECTION IM PRN ×2 (07:29→20:03)
[2017-03-04] MEDS: METFORMIN 1,000 MG TABLET PO SCH ×2 (10:59→17:48)
[2017-03-04] MEDS: PIOGLITAZONE 30 MG TABLET PO SCH (11:00)
[2017-03-04] MEDS: CEFTRIAXONE 1 G INJECTION IM SCH (15:30)
[2017-03-04] MEDS: LIDOCAINE 1% (10mg/ml) 5ml PF SDV ID SCH (15:30)
--- NOTE | 2017-03-04 18:27 | Neuropsych Progress Note ---
Gener[facility] Subjective Date: 03/05/17 - Sujective/Severity of Illness Medications: Acetaminophen (Tylenol Arthritis) 650 mg PO Q6H PRN PRN Reason: Pain Last Admin: 03/02/17 14:17 Dose: 650 mg Ceftriaxone Sodium (Rocephin) 1 g IM Q24H [facility] Last Admin: 03/04/17 15:30 Dose: 1 g Famotidine (Pepcid) 20 mg PO BID [facility] Last Admin: 03/04/17 10:59 Dose: 20 mg Haloperidol (Haldol) 0.5 mg PO Q6H PRN PRN Reason: Extreme agitation Last Admin: 03/03/17 23:40 Dose: 0.5 mg Haloperidol Lactate (Haldol) 0.5 mg IM Q6H PRN PRN Reason: Extreme agitation Last Admin: 03/04/17 07:29 Dose: 0.5 mg Levothyroxine Sodium (Synthroid) 112 mcg PO ACB [facility] Last Admin: 03/04/17 07:36 Dose: Not Given Lidocaine HCl (Xylocaine-Mpf 1% Vial) 21 mg ID 1300 [facility] Last Admin: 03/04/17 15:30 Dose: 21 mg Loperamide HCl (Imodium) 2 mg PO QID PRN; Protocol PRN Reason: Diarrhea Lorazepam (Ativan) 0.5 mg PO Q6H PRN PRN Reason: Extreme agitation Lorazepam (Ativan Inj) 0.5 mg IM Q6H PRN PRN Reason: Extreme agitation Last Admin: 03/04/17 07:00 Dose: 0.5 mg Lorazepam (Ativan) 0.5 mg PO HS [facility] Last Admin: 03/04/17 01:26 Dose: Not Given Lorazepam (Ativan Intensol) 0.5 mg SL HS PRN PRN Reason: Refusing scheduled PO tab Metformin HCl (Glucophage) 1,000 mg PO BIDWM [facility] Last Admin: 03/04/17 17:48 Dose: 1,000 mg Metoprolol Succinate (Toprol Xl) 50 mg PO DAILY [facility] Last Admin: 03/04/17 10:59 Dose: 50 mg Pioglitazone HCl (Actos) 30 mg PO DAILY [facility] Last Admin: 03/04/17 11:00 Dose: 30 mg Polyethylene Glycol (Miralax) 17 gm PO DAILY PRN PRN Reason: Constipation Potassium Chloride (K-Dur) 20 meq PO BIDWM [facility] Last Admin: 03/04/17 17:48 Dose: 20 meq Fluticasone/Salmeterol (Advair Diskus) 1 puff ORAL INH BID [facility] Last Admin: 03/04/17 08:15 Dose: 1 puff Subjective: Patient seen and chart reviewed. Case discussed with treatment team. On interview, patient is pleasant and reports her mood is "great." She does not have any insight into behaviors/symptoms. Patient denies any SI, HI or AVH. Patient denies any adverse side effects related to psychotropic medications. Nursing staff report patient is pleasant during the day, but then sundowns and becomes combative, physically aggressive overnight. Patient has been adherent with medications but takes them crushed with food. Patient slept 5.75 hours overnight. VSS. Patient is eating well. Psychotropic PRNs required in the past 24 hours: Multiple, both PO and IM overnight. UA requested due to sudden change in behavior. Start Time: 09:20 Stop Time: 09:40 Mental Status Exam Vitals: Last Vital Signs Temp 97.2 F 03/04/17 15:43 Pulse 103 H 03/04/17 15:43 Resp 18 03/04/17 15:43 BP 128/66 03/04/17 15:43 Pulse Ox 98 03/04/17 15:43 Height: 1.65 m Weight: 79.9 kg - Mental Status Exam Muscle Strength/Tone: Normal Dressing: Casual Grooming: Fair Attitude: Cooperative Motor Activity: Normal Eye Contact: Fair Speech: Slowed Volume: Soft Rhythm: Appropriate Rhythm Sensory: Alert Orientation: Disoriented to time, Disoriented to place, Disoriented to situation , Oriented to person Mood: Euthymic (labile affect - sundowns in the evening) Rate of Thoughts: Delayed Thought Organization: Confused Associations: Illogical Abstract Reasoning: Impaired, concrete Thought Content: Normal (No abnormal thought content elicited other than confusion) Perception/Psychotic: Perception Normal Language: Naming Impaired Fund of Knowledge: Poor fund of knowledge Memory: Poor-immediate, Poor-recent Suicidal Ideation: Denies Homicidal Ideation: Denies Insight: Impaired Judgement: Impaired Impulse Control: Poor - Laboratory Result Diagrams: 03/04/17 16:28 03/04/17 16:28 Laboratory Results - last 24 hr 03/03/17 03/04/17 03/04/17 12:29 10:00 10:52 WBC RBC Hgb Hct MCV MCH MCHC RDW Std Deviation Plt Count MPV Immature Gran % (Auto) Neut % (Auto) Lymph % (Auto) Talbot % (Auto) Eos % (Auto) Baso % (Auto) Neut # (Auto) Lymph # (Auto) Talbot # (Auto) Eos # (Auto) Baso # (Auto) Abs Immat Gran (auto) Turbidity Sodium Potassium Chloride Carbon Dioxide Anion Gap BUN Creatinine GFR Calculation BUN/Creatinine Ratio Glucose Glucometer 172 150 Calculated Osmolality Calcium Total Bilirubin Icterus Index AST ALT Alkaline Phosphatase Total Protein Albumin Globulin Albumin/Globulin Ratio Specimen Hemolysis Ur Collection Type Urine, clean catch Urine Color Yellow Urine Clarity Cloudy Urine pH 5.0 Ur Specific [place] >=1.030 H Urine Protein Trace A Urine Glucose (UA) Negative Urine Ketones Trace A Urine Occult Blood 2+ A Urine Nitrate Negative Urine Bilirubin 1+ A Urine Urobilinogen 0.2 Ur Leukocyte Esterase 3+ A Urine RBC 3-5 H Urine WBC Tntc H Urine WBC Clumps Many H Ur Squamous Epith Cells 20-50 Ur Transition Epith Cell 0-1 Urine Bacteria 3+ H Hyaline Casts 3-5 Ur Culture Indicated? Cult reflexed &setup 03/04/17 03/04/17 03/04/17 16:28 16:28 17:08 WBC 12.3 H RBC 4.76 Hgb 12.5 Hct 38.7 MCV 81.3 MCH 26.3 MCHC 32.3 RDW Std Deviation 46.1 Plt Count 400 MPV 12.1 Immature Gran % (Auto) 0.2 Neut % (Auto) 73.0 H Lymph % (Auto) 20.7 L Talbot % (Auto) 5.3 Eos % (Auto) 0.6 Baso % (Auto) 0.2 Neut # (Auto) 9.0 H Lymph # (Auto) 2.6 Talbot # (Auto) 0.7 Eos # (Auto) 0.1 Baso # (Auto) 0.0 Abs Immat Gran (auto) 0.02 Turbidity < 20 Sodium 143 Potassium 4.7 Chloride 105 Carbon Dioxide 25 Anion Gap 13 BUN 11.0 Creatinine 1.0 GFR Calculation 55 BUN/Creatinine Ratio 11 Glucose 147 H Glucometer 162 Calculated Osmolality 277 Calcium 10.7 H Total Bilirubin 0.50 Icterus Index < 2 AST 31 ALT 29 Alkaline Phosphatase 94 Total Protein 8.4 H Albumin 4.9 Globulin 3.5 Albumin/Globulin Ratio 1.4 Specimen Hemolysis < 15 Ur Collection Type Urine Color Urine Clarity Urine pH Ur Specific [place] Urine Protein Urine Glucose (UA) Urine Ketones Urine Occult Blood Urine Nitrate Urine Bilirubin Urine Urobilinogen Ur Leukocyte Esterase Urine RBC Urine WBC Urine WBC Clumps Ur Squamous Epith Cells Ur Transition Epith Cell Urine Bacteria Hyaline Casts Ur Culture Indicated? Assessment and Plan (1) Major neurocognitive disorder Problem details: due to Alzheimer's, moderate, with behavioral disturbance R/O mixed frontotemproal disease Current visit: Yes Status: Acute (2) Dyslipidemia Current visit: Yes Status: Acute (3) Hypertension Current visit: Yes Status: Acute (4) Diabetes mellitus, type II Current visit: Yes Status: Acute (5) COPD (chronic obstructive pulmonary disease) Current visit: Yes Status: Acute (6) Hypothyroidism Current visit: Yes Status: Acute Plan to order UA due to concern for delirium due to UTI. Hospital Course Summary Disclaimer: The visit summary below is not to be considered part of the above Progress Note. Hospital Course: At admission: Lorazepam tapered from 1mg PO TID to 0.5mg PO TID with plan to further taper/discontinue. 03/01/17 Pt was confused and agitated last night and appears to be sundowning as she does well during the day. Will continue use of PRN's for now and monitor behavior. 03/02/17 Pt improved. No behaviors noted. Continue current care. 03/03/17 Psych: Will taper Ativan to 0.5mg PO at HS only and monitor response; will likely need additional medication due to sundowning. 03/04/17 Psych: Will order UA due to concern for delirium due to UTI.
[2017-03-04] MEDS ORDERED: OLANZapine ODT 5 MG TABLET PO PRN (23:12)
[2017-03-05] MEDS ORDERED: OLANZapine ODT 5 MG TABLET PO SCH (09:00)
[2017-03-05] MEDS: LEVOTHYROXINE 112 MCG TABLET PO SCH (11:52)
[2017-03-05] MEDS: METFORMIN 1,000 MG TABLET PO SCH ×2 (11:53→17:54)
[2017-03-05] MEDS: FAMOTIDINE 20 MG TABLET PO SCH ×2 (11:54→20:14)
[2017-03-05] MEDS: PIOGLITAZONE 30 MG TABLET PO SCH (11:55)
[2017-03-05] MEDS: LIDOCAINE 1% (10mg/ml) 5ml PF SDV ID SCH (13:20)
[2017-03-05] MEDS: CEFTRIAXONE 1 G INJECTION IM SCH (13:24)
[2017-03-05] MEDS: OLANZapine ODT 5 MG TABLET PO SCH (17:54)
--- NOTE | 2017-03-05 20:00 | Progress Note ---
Progress Note: Pt's BS's have been well controlled. She is resistant to BS checks at times. WIll DC accuchecks given that she is under good control.
[2017-03-05] MEDS: LORazepam 0.5 MG TABLET PO SCH (20:14)
--- NOTE | 2017-03-05 20:51 | Neuropsych Progress Note ---
[facility] Subjective Date: 03/05/17 - Sujective/Severity of Illness Medications: Acetaminophen (Tylenol Arthritis) 650 mg PO Q6H PRN PRN Reason: Pain Last Admin: 03/02/17 14:17 Dose: 650 mg Ceftriaxone Sodium (Rocephin) 1 g IM Q24H [facility] Last Admin: 03/05/17 13:24 Dose: 1 g Famotidine (Pepcid) 20 mg PO BID [facility] Last Admin: 03/05/17 20:14 Dose: 20 mg Haloperidol (Haldol) 0.5 mg PO Q6H PRN PRN Reason: Extreme agitation Last Admin: 03/03/17 23:40 Dose: 0.5 mg Haloperidol Lactate (Haldol) 0.5 mg IM Q6H PRN PRN Reason: Extreme agitation Last Admin: 03/04/17 20:03 Dose: 0.5 mg Levothyroxine Sodium (Synthroid) 112 mcg PO ACB [facility] Last Admin: 03/05/17 11:52 Dose: 112 mcg Lidocaine HCl (Xylocaine-Mpf 1% Vial) 21 mg ID 1300 [facility] Last Admin: 03/05/17 13:20 Dose: 21 mg Loperamide HCl (Imodium) 2 mg PO QID PRN; Protocol PRN Reason: Diarrhea Lorazepam (Ativan) 0.5 mg PO Q6H PRN PRN Reason: Extreme agitation Lorazepam (Ativan Inj) 0.5 mg IM Q6H PRN PRN Reason: Extreme agitation Last Admin: 03/04/17 20:04 Dose: 0.5 mg Lorazepam (Ativan) 0.5 mg PO HS [facility] Last Admin: 03/05/17 20:14 Dose: 0.5 mg Lorazepam (Ativan Intensol) 0.5 mg SL HS PRN PRN Reason: Refusing scheduled PO tab Metformin HCl (Glucophage) 1,000 mg PO BIDWM [facility] Last Admin: 03/05/17 17:54 Dose: 1,000 mg Metoprolol Succinate (Toprol Xl) 50 mg PO DAILY [facility] Last Admin: 03/05/17 11:54 Dose: 50 mg Olanzapine (Zyprexa Zydis) 2.5 mg PO 1730 [facility] Last Admin: 03/05/17 17:54 Dose: 2.5 mg Pioglitazone HCl (Actos) 30 mg PO DAILY [facility] Last Admin: 03/05/17 11:55 Dose: 30 mg Polyethylene Glycol (Miralax) 17 gm PO DAILY PRN PRN Reason: Constipation Potassium Chloride (K-Dur) 20 meq PO BIDWM [facility] Last Admin: 03/05/17 17:54 Dose: 20 meq Fluticasone/Salmeterol (Advair Diskus) 1 puff ORAL INH BID [facility] Last Admin: 03/05/17 18:33 Dose: 1 puff Subjective: Patient seen and chart reviewed. Case discussed with treatment team. On interview, patient is pleasant and reports her mood is "great." She does not have any insight into behaviors/symptoms. Patient denies any SI, HI or AVH. Patient denies any adverse side effects related to psychotropic medications. UA was positive; patient was treated with IM Rocephin yesterday and today will be day #2 of antibiotic treatment. Nursing staff report patient is pleasant during the day, but then sundowns and becomes combative, physically aggressive overnight. Haldol seems to make agitation worse but PRN Zyprexa 2.5mg last night was effective in calming patient. Patient has been adherent with medications but takes them crushed with food. Patient slept 6 hours overnight. VSS. Patient is eating well. Psychotropic PRNs required in the past 24 hours: Multiple, both PO and IM last night. Discussed antipsychotic use, including black box warning, with patient's/son [id number], who consents to use PRN or as needed for owning after delirium resolves. Start Time: 09:20 Stop Time: 09:40 Mental Status Exam Vitals: Last Vital Signs Temp 97.0 F 03/05/17 20:35 Pulse 84 03/05/17 20:35 Resp 20 03/05/17 20:35 BP 129/64 03/05/17 20:35 Pulse Ox 100 03/05/17 20:35 Height: 1.65 m Weight: 79.9 kg - Mental Status Exam Muscle Strength/Tone: Normal Dressing: Casual Grooming: Fair Attitude: Cooperative Motor Activity: Normal Eye Contact: Fair Speech: Slowed Volume: Soft Rhythm: Appropriate Rhythm Orientation: Disoriented to time, Disoriented to place, Disoriented to situation , Oriented to person Mood: Euthymic (labile affect - sundowns in the evening) Rate of Thoughts: Delayed Thought Organization: Confused Associations: Illogical Abstract Reasoning: Impaired, concrete Thought Content: Normal (No abnormal thought content elicited other than confusion) Perception/Psychotic: Perception Normal Language: Naming Impaired Fund of Knowledge: Poor fund of knowledge Memory: Poor-immediate, Poor-recent Suicidal Ideation: Denies Homicidal Ideation: Denies Insight: Impaired Judgement: Impaired Impulse Control: Poor - Laboratory Result Diagrams: 03/04/17 16:28 03/04/17 16:28 Laboratory Results - last 24 hr 03/04/17 03/05/17 03/05/17 21:09 11:04 17:10 Glucometer 139 184 124 03/05/17 20:33 Glucometer 126 Assessment and Plan (1) Major neurocognitive disorder Problem details: mixed etiology (Alzheimer's and frontotemporal disease), moderate, with behavioral disturbance Current visit: Yes Status: Acute (2) Dyslipidemia Current visit: Yes Status: Acute (3) Hypertension Current visit: Yes Status: Acute (4) Diabetes mellitus, type II Current visit: Yes Status: Acute (5) COPD (chronic obstructive pulmonary disease) Current visit: Yes Status: Acute (6) Hypothyroidism Current visit: Yes Status: Acute (7) Delirium Problem details: due to UTI (new-onset 03/06) Current visit: Yes Status: Acute (8) Urinary tract infection Current visit: Yes Status: Acute UTI being treated with Rocephin; will schedule Zyprexa Zydis 2.5mg PO with dinner to target sundowning, overnight agitation. Continue to monitor and re- evaluate necessity as delirium due to UTI resolves. Hospital Course Summary Disclaimer: The visit summary below is not to be considered part of the above Progress Note. Hospital Course: At admission: Lorazepam tapered from 1mg PO TID to 0.5mg PO TID with plan to further taper/discontinue. 03/01/17 Pt was confused and agitated last night and appears to be sundowning as she does well during the day. Will continue use of PRN's for now and monitor behavior. 03/02/17 Pt improved. No behaviors noted. Continue current care. 03/03/17 Psych: Will taper Ativan to 0.5mg PO at HS only and monitor response; will likely need additional medication due to sundowning. 03/04/17 Psych: Will order UA due to concern for delirium due to UTI. 03/05/17 Psych: UTI being treated with Rocephin; will schedule Zyprexa Zydis 2.5mg PO with dinner to target owning, overnight agitation. Continue to monitor and re-evaluate necessity as delirium due to UTI resolves.
[2017-03-06] MEDS: METFORMIN 1,000 MG TABLET PO SCH ×2 (08:08→18:01)
[2017-03-06] MEDS: FAMOTIDINE 20 MG TABLET PO SCH ×2 (08:08→20:30)
[2017-03-06] MEDS: LEVOTHYROXINE 112 MCG TABLET PO SCH (08:08)
[2017-03-06] MEDS: PIOGLITAZONE 30 MG TABLET PO SCH (08:09)
[2017-03-06] MEDS: CEFTRIAXONE 1 G INJECTION IM SCH (14:23)
[2017-03-06] MEDS: LIDOCAINE 1% (10mg/ml) 5ml PF SDV ID SCH (14:23)
[2017-03-06] MEDS: OLANZapine ODT 5 MG TABLET PO SCH (18:04)
--- NOTE | 2017-03-06 18:38 | Neuropsych Progress Note ---
[facility] Subjective Date: 03/06/17 - Sujective/Severity of Illness Medications: Acetaminophen (Tylenol Arthritis) 650 mg PO Q6H PRN PRN Reason: Pain Last Admin: 03/02/17 14:17 Dose: 650 mg Ceftriaxone Sodium (Rocephin) 1 g IM Q24H [facility] Stop: 03/07/17 23:59 Last Admin: 03/06/17 14:23 Dose: 1 g Famotidine (Pepcid) 20 mg PO BID [facility] Last Admin: 03/06/17 08:08 Dose: 20 mg Haloperidol (Haldol) 0.5 mg PO Q6H PRN PRN Reason: Extreme agitation Last Admin: 03/03/17 23:40 Dose: 0.5 mg Haloperidol Lactate (Haldol) 0.5 mg IM Q6H PRN PRN Reason: Extreme agitation Last Admin: 03/04/17 20:03 Dose: 0.5 mg Levothyroxine Sodium (Synthroid) 112 mcg PO ACB [facility] Last Admin: 03/06/17 08:08 Dose: 112 mcg Lidocaine HCl (Xylocaine-Mpf 1% Vial) 21 mg ID 1300 [facility] Last Admin: 03/06/17 14:23 Dose: 21 mg Loperamide HCl (Imodium) 2 mg PO QID PRN; Protocol PRN Reason: Diarrhea Lorazepam (Ativan) 0.5 mg PO Q6H PRN PRN Reason: Extreme agitation Lorazepam (Ativan Inj) 0.5 mg IM Q6H PRN PRN Reason: Extreme agitation Last Admin: 03/04/17 20:04 Dose: 0.5 mg Lorazepam (Ativan) 0.5 mg PO HS [facility] Last Admin: 03/05/17 20:14 Dose: 0.5 mg Lorazepam (Ativan Intensol) 0.5 mg SL HS PRN PRN Reason: Refusing scheduled PO tab Metformin HCl (Glucophage) 1,000 mg PO BIDWM [facility] Last Admin: 03/06/17 18:01 Dose: 1,000 mg Metoprolol Succinate (Toprol Xl) 50 mg PO DAILY [facility] Last Admin: 03/06/17 08:09 Dose: 50 mg Olanzapine (Zyprexa Zydis) 2.5 mg PO 1730 [facility] Last Admin: 03/06/17 18:04 Dose: 2.5 mg Pioglitazone HCl (Actos) 30 mg PO DAILY [facility] Last Admin: 03/06/17 08:09 Dose: 30 mg Polyethylene Glycol (Miralax) 17 gm PO DAILY PRN PRN Reason: Constipation Potassium Chloride (K-Dur) 20 meq PO BIDWM [facility] Last Admin: 03/06/17 18:01 Dose: 20 meq Fluticasone/Salmeterol (Advair Diskus) 1 puff ORAL INH BID [facility] Last Admin: 03/06/17 10:25 Dose: 1 puff Subjective: Patient seen and chart reviewed. Case discussed with treatment team. On interview, patient is pleasant and reports her mood is "great." She does not have any insight into behaviors. Today she does tell me she needs a new brain but she is too old. Patient denies any SI, HI or AVH. Patient denies any adverse side effects related to psychotropic medications. UA was positive; patient was treated with IM Rocephin and today will be day #3 of antibiotic treatment. Nursing staff report patient is pleasant during the day, but then sundowns and becomes combative, physically aggressive overnight but this has improved from the night prior. She is often confused and put a spoonful of flour in her mouth today during an activity. Patient has been adherent with medications but takes them crushed with food. Patient slept 8 hours overnight. VSS. Patient is eating well. Psychotropic PRNs required in the past 24 hours: None. Start Time: 10:20 Stop Time: 10:40 Mental Status Exam Vitals: Last Vital Signs Temp 96.6 F L 03/06/17 16:00 Pulse 83 03/06/17 16:00 Resp 16 03/06/17 16:00 BP 137/77 03/06/17 16:00 Pulse Ox 100 03/06/17 16:00 Height: 1.65 m Weight: 79.9 kg - Mental Status Exam Muscle Strength/Tone: Normal Dressing: Casual Grooming: Fair Attitude: Cooperative Motor Activity: Normal Eye Contact: Fair Speech: Slowed Volume: Soft Rhythm: Appropriate Rhythm Orientation: Disoriented to time, Disoriented to place, Disoriented to situation , Oriented to person Mood: Euthymic (labile affect - sundowns in the evening) Rate of Thoughts: Delayed Thought Organization: Confused Associations: Illogical Abstract Reasoning: Impaired, concrete Thought Content: Normal Perception/Psychotic: Perception Normal Language: Naming Impaired Fund of Knowledge: Poor fund of knowledge Memory: Poor-immediate, Poor-recent Suicidal Ideation: Denies Homicidal Ideation: Denies Insight: Impaired Judgement: Impaired Impulse Control: Poor - Laboratory Result Diagrams: 03/04/17 16:28 03/04/17 16:28 Laboratory Results - last 24 hr 03/05/17 03/06/17 20:33 17:16 Glucometer 126 160 Assessment and Plan (1) Major neurocognitive disorder Problem details: mixed etiology (Alzheimer's and frontotemporal disease), moderate, with behavioral disturbance Current visit: Yes Status: Acute (2) Dyslipidemia Current visit: Yes Status: Acute (3) Hypertension Current visit: Yes Status: Acute (4) Diabetes mellitus, type II Current visit: Yes Status: Acute (5) COPD (chronic obstructive pulmonary disease) Current visit: Yes Status: Acute (6) Hypothyroidism Current visit: Yes Status: Acute (7) Delirium Problem details: due to UTI (new-onset 03/06) Current visit: Yes Status: Acute (8) Urinary tract infection Current visit: Yes Status: Acute Agitation, combativeness improving with treatment of UTI and resolving delirium. Continue to monitor and assess whether Zyprexa continues to be necessary afterwards for sundowning. Will need to evaluate patient for SNU. Hospital Course Summary Disclaimer: The visit summary below is not to be considered part of the above Progress Note. Hospital Course: At admission: Lorazepam tapered from 1mg PO TID to 0.5mg PO TID with plan to further taper/discontinue. 03/01/17 Pt was confused and agitated last night and appears to be sundowning as she does well during the day. Will continue use of PRN's for now and monitor behavior. 03/02/17 Pt improved. No behaviors noted. Continue current care. 03/03/17 Psych: Will taper Ativan to 0.5mg PO at HS only and monitor response; will likely need additional medication due to sundowning. 03/04/17 Psych: Will order UA due to concern for delirium due to UTI. 03/05/17 Psych: UTI being treated with Rocephin; will schedule Zyprexa Zydis 2.5mg PO with dinner to target sundowning, overnight agitation. Continue to monitor and re-evaluate necessity as delirium due to UTI resolves. 03/06/17 Psych: Agitation, combativeness improving with treatment of UTI and resolving delirium. Continue to monitor and assess whether Zyprexa continues to be necessary afterwards for . Will need to evaluate patient for SNU.
[2017-03-06] MEDS: LORazepam 0.5 MG TABLET PO SCH (20:30)
[2017-03-07] MEDS: LEVOTHYROXINE 112 MCG TABLET PO SCH (11:04)
[2017-03-07] MEDS: METFORMIN 1,000 MG TABLET PO SCH ×2 (11:06→17:14)
[2017-03-07] MEDS: FAMOTIDINE 20 MG TABLET PO SCH ×2 (11:06→20:20)
[2017-03-07] MEDS: PIOGLITAZONE 30 MG TABLET PO SCH (11:15)
[2017-03-07] MEDS: CEFTRIAXONE 1 G INJECTION IM SCH (12:57)
[2017-03-07] MEDS: LIDOCAINE 1% (10mg/ml) 5ml PF SDV ID SCH (13:03)
--- NOTE | 2017-03-07 15:11 | Progress Note ---
- Date 03/07/17 Subjective: Linda is seen today in follow up. She is sitting in the chair initially however requests to get up and ambulate during exam. She is wanting to go for "[employer]". She denies feeling pain or shortness of breath. Chart reviewed , BP stable, and BGM appears to be well controlled. Objective Vital signs: Temperature 97.6 F 03/07/17 12:05 Pulse Rate 102 H 03/07/17 12:05 Respiratory Rate 20 03/07/17 12:05 Blood Pressure 137/80 03/07/17 12:05 Pulse Oximetry 96 03/07/17 12:05 Height/Weight/BMI: Height 1.65 m Weight 79.9 kg Body Mass Index 29.2 - Constitutional Present: no acute distress, well nourished, well developed - Routine HEENT Exam Eye: Present: EOMI ENT: Present: mucous membranes moist, dentition normal - Routine Respiratory Exam Present: CTA bilaterally. Absent: wheezes - Routine Cardiovascular Exam Present: RRR, S1, S2. Absent: murmur - Routine Abdominal Exam Present: soft, normoactive bowel sounds, non distended. Absent: tenderness - Routine Extremities Exam Present: edema (trace bilateral ) - Routine Skin Exam Present: intact, dry, warm - Routine Neurological Exam Present: alert, CN II-XII intact, altered mental status - Routine Lymphatic Exam Lymphatic: Absent: adenopathy - Routine Psychiatric Exam Present: cooperative Results - Labs CBC & Chem 7: 03/04/17 16:28 03/04/17 16:28 Microbiology Results: Microbiology 03/04/17 10:00 Urine, Voided (Cc/notcc) Urine Culture - Final Mixed Bacterial Yessenia Present -No further testing will be performed Assessment and Plan (1) Dementia with behavioral problem Current visit: Yes Status: Acute Assessment and Plan: Impression Dementia with behaviors Hypertension Dyslipidemia Type II diabetes COPD Hypothyroidism Plan Overall appears to be medically stable. Reviewed UA culture from 03/04 which reveled mixed yessenia. No treatment required. BP appear mostly well controlled BGM under good control Psych notes reviewed - Physician Narrative Narrative: Date: 03/07/17 Time: 1503 Hospital Course Summary Disclaimer: The visit summary below is not to be considered part of the above Progress Note. Hospital Course: At admission: Lorazepam tapered from 1mg PO TID to 0.5mg PO TID with plan to further taper/discontinue. 03/01/17 Pt was confused and agitated last night and appears to be sundowning as she does well during the day. Will continue use of PRN's for now and monitor behavior. 03/02/17 Pt improved. No behaviors noted. Continue current care. 03/03/17 Psych: Will taper Ativan to 0.5mg PO at HS only and monitor response; will likely need additional medication due to sundowning. 03/04/17 Psych: Will order UA due to concern for delirium due to UTI. 03/05/17 Psych: UTI being treated with Rocephin; will schedule Zyprexa Zydis 2.5mg PO with dinner to target sundowning, overnight agitation. Continue to monitor and re-evaluate necessity as delirium due to UTI resolves. 03/06/17 Psych: Agitation, combativeness improving with treatment of UTI and resolving delirium. Continue to monitor and assess whether Zyprexa continues to be necessary afterwards for sundowning. Will need to evaluate patient for SNU. 03/07- Overall appears to be medically stable. Reviewed UA culture from 03/04 which reveled mixed yessenia. No treatment required. BP appear mostly well controlled BGM under good control Psych notes reviewed
--- NOTE | 2017-03-07 19:08 | Neuropsych Progress Note ---
[facility] Subjective Date: 03/07/17 - Sujective/Severity of Illness Medications: Acetaminophen (Tylenol Arthritis) 650 mg PO Q6H PRN PRN Reason: Pain Last Admin: 03/07/17 04:05 Dose: 650 mg Famotidine (Pepcid) 20 mg PO BID [facility] Last Admin: 03/07/17 11:06 Dose: 20 mg Haloperidol (Haldol) 0.5 mg PO Q6H PRN PRN Reason: Extreme agitation Last Admin: 03/03/17 23:40 Dose: 0.5 mg Haloperidol Lactate (Haldol) 0.5 mg IM Q6H PRN PRN Reason: Extreme agitation Last Admin: 03/04/17 20:03 Dose: 0.5 mg Levothyroxine Sodium (Synthroid) 112 mcg PO ACB [facility] Last Admin: 03/07/17 11:04 Dose: 112 mcg Loperamide HCl (Imodium) 2 mg PO QID PRN; Protocol PRN Reason: Diarrhea Lorazepam (Ativan) 0.5 mg PO Q6H PRN PRN Reason: Extreme agitation Lorazepam (Ativan Inj) 0.5 mg IM Q6H PRN PRN Reason: Extreme agitation Last Admin: 03/04/17 20:04 Dose: 0.5 mg Lorazepam (Ativan) 0.5 mg PO HS [facility] Last Admin: 03/06/17 20:30 Dose: 0.5 mg Lorazepam (Ativan Intensol) 0.5 mg SL HS PRN PRN Reason: Refusing scheduled PO tab Last Admin: 03/07/17 03:26 Dose: 0.5 mg Magnesium Hydroxide (Mom) 30 ml PO DAILY PRN PRN Reason: Constipation Last Admin: 03/07/17 13:19 Dose: 30 ml Metformin HCl (Glucophage) 1,000 mg PO BIDWM [facility] Last Admin: 03/07/17 17:14 Dose: 1,000 mg Metoprolol Succinate (Toprol Xl) 50 mg PO DAILY [facility] Last Admin: 03/07/17 11:14 Dose: 50 mg Olanzapine (Zyprexa Zydis) 5 mg PO HS [facility] Pioglitazone HCl (Actos) 30 mg PO DAILY [facility] Last Admin: 03/07/17 11:15 Dose: 30 mg Polyethylene Glycol (Miralax) 17 gm PO DAILY PRN PRN Reason: Constipation Potassium Chloride (K-Dur) 20 meq PO BIDWM [facility] Last Admin: 03/07/17 17:14 Dose: 20 meq Fluticasone/Salmeterol (Advair Diskus) 1 puff ORAL INH BID [facility] Last Admin: 03/07/17 13:25 Dose: 1 puff Subjective: Patient seen and chart reviewed. Case discussed with treatment team. On interview, patient is pleasant and reports her mood is "great." She does not have any insight into behaviors. Patient denies any SI, HI or AVH. Patient denies any adverse side effects related to psychotropic medications. UA was positive; patient was treated with IM Rocephin and today will be day #4 of antibiotic treatment. Nursing staff report patient is pleasant during the day, but then sundowns and becomes combative, physically aggressive overnight but this has improved from nights prior. Apparently that continued into this morning as well. Discussed care with son again as he is leaving to go back to [place]; he is in agreement with treatment plan. Patient has been adherent with medications but takes them crushed with food at times. Patient slept 6.5 hours overnight but has been going to bed quite early (1730 last night). VSS. Patient is eating well. Psychotropic PRNs required in the past 24 hours: Ativan Intensol 0.5mg x1 for at 0325. Start Time: 11:00 Stop Time: 11:20 Care: >50% of this visit spent in counseling/coordination care. (discussing care and treatment with son/DPOA) Mental Status Exam Vitals: Last Vital Signs Temp 97.1 F 03/07/17 16:40 Pulse 89 03/07/17 16:40 Resp 16 03/07/17 16:40 BP 115/47 03/07/17 16:40 Pulse Ox 100 03/07/17 16:40 Height: 1.65 m Weight: 79.9 kg - Mental Status Exam Muscle Strength/Tone: Normal Dressing: Casual Grooming: Fair Attitude: Cooperative Motor Activity: Normal Eye Contact: Fair Speech: Slowed Volume: Soft Rhythm: Appropriate Rhythm Orientation: Disoriented to time, Disoriented to place, Disoriented to situation , Oriented to person Mood: Euthymic (labile affect - sundowns in the evening) Affect: Bright (during interview but labile on unit) Rate of Thoughts: Delayed Thought Organization: Confused Associations: Illogical Abstract Reasoning: Impaired, concrete Thought Content: Normal Perception/Psychotic: Perception Normal Language: Naming Impaired Fund of Knowledge: Poor fund of knowledge Memory: Poor-immediate, Poor-recent Suicidal Ideation: Denies Homicidal Ideation: Denies Insight: Impaired Judgement: Impaired Impulse Control: Poor - Laboratory Result Diagrams: 03/04/17 16:28 03/04/17 16:28 Assessment and Plan (1) Major neurocognitive disorder Problem details: mixed etiology (Alzheimer's and frontotemporal disease), moderate, with behavioral disturbance Current visit: Yes Status: Acute (2) Dyslipidemia Current visit: Yes Status: Acute (3) Hypertension Current visit: Yes Status: Acute (4) Diabetes mellitus, type II Current visit: Yes Status: Acute (5) COPD (chronic obstructive pulmonary disease) Current visit: Yes Status: Acute (6) Hypothyroidism Current visit: Yes Status: Acute (7) Delirium Problem details: due to UTI (new-onset 03/06) Current visit: Yes Status: Acute (8) Urinary tract infection Current visit: Yes Status: Acute Will increase Zyprexa to 5mg at HS. Monitor mood, behavior and response to treatment. May consider decreasing back to 2.5mg as delirium resolves though she still has underlying sundowning. Hospital Course Summary Disclaimer: The visit summary below is not to be considered part of the above Progress Note. Hospital Course: At admission: Lorazepam tapered from 1mg PO TID to 0.5mg PO TID with plan to further taper/discontinue. 03/01/17 Pt was confused and agitated last night and appears to be sundowning as she does well during the day. Will continue use of PRN's for now and monitor behavior. 03/02/17 Pt improved. No behaviors noted. Continue current care. 03/03/17 Psych: Will taper Ativan to 0.5mg PO at HS only and monitor response; will likely need additional medication due to sundowning. 03/04/17 Psych: Will order UA due to concern for delirium due to UTI. 03/05/17 Psych: UTI being treated with Rocephin; will schedule Zyprexa Zydis 2.5mg PO with dinner to target sundowning, overnight agitation. Continue to monitor and re-evaluate necessity as delirium due to UTI resolves. 03/06/17 Psych: Agitation, combativeness improving with treatment of UTI and resolving delirium. Continue to monitor and assess whether Zyprexa continues to be necessary afterwards for sundowning. Will need to evaluate patient for SNU. 03/07- Overall appears to be medically stable. Reviewed UA culture from 03/04 which reveled mixed yessenia. No treatment required. BP appear mostly well controlled BGM under good control Psych notes reviewed 03/07/17 Psych: Will increase Zyprexa to 5mg at HS. Monitor mood, behavior and response to treatment. May consider decreasing back to 2.5mg as delirium resolves though she still has underlying sundowning.
[2017-03-07] MEDS: OLANZapine ODT 5 MG TABLET PO SCH (20:19)
[2017-03-07] MEDS: LORazepam 0.5 MG TABLET PO SCH (20:19)
[2017-03-08] MEDS: FAMOTIDINE 20 MG TABLET PO SCH ×2 (10:15→20:03)
[2017-03-08] MEDS: METFORMIN 1,000 MG TABLET PO SCH (10:15)
[2017-03-08] MEDS: LEVOTHYROXINE 112 MCG TABLET PO SCH (10:15)
[2017-03-08] MEDS: PIOGLITAZONE 30 MG TABLET PO SCH (10:16)
--- NOTE | 2017-03-08 11:35 | Neuropsych Progress Note ---
[facility] Subjective Date: 03/08/17 - Sujective/Severity of Illness Medications: Acetaminophen (Tylenol Arthritis) 650 mg PO Q6H PRN PRN Reason: Pain Last Admin: 03/07/17 04:05 Dose: 650 mg Famotidine (Pepcid) 20 mg PO BID [facility] Last Admin: 03/08/17 10:15 Dose: 20 mg Haloperidol (Haldol) 0.5 mg PO Q6H PRN PRN Reason: Extreme agitation Last Admin: 03/03/17 23:40 Dose: 0.5 mg Haloperidol Lactate (Haldol) 0.5 mg IM Q6H PRN PRN Reason: Extreme agitation Last Admin: 03/04/17 20:03 Dose: 0.5 mg Levothyroxine Sodium (Synthroid) 112 mcg PO ACB [facility] Last Admin: 03/08/17 10:15 Dose: 112 mcg Loperamide HCl (Imodium) 2 mg PO QID PRN; Protocol PRN Reason: Diarrhea Lorazepam (Ativan) 0.5 mg PO Q6H PRN PRN Reason: Extreme agitation Lorazepam (Ativan Inj) 0.5 mg IM Q6H PRN PRN Reason: Extreme agitation Last Admin: 03/08/17 09:47 Dose: 0.5 mg Lorazepam (Ativan) 0.5 mg PO HS [facility] Last Admin: 03/07/17 20:19 Dose: 0.5 mg Lorazepam (Ativan Intensol) 0.5 mg SL HS PRN PRN Reason: Refusing scheduled PO tab Last Admin: 03/07/17 03:26 Dose: 0.5 mg Magnesium Hydroxide (Mom) 30 ml PO DAILY PRN PRN Reason: Constipation Last Admin: 03/07/17 13:19 Dose: 30 ml Metformin HCl (Glucophage) 1,000 mg PO BIDWM [facility] Last Admin: 03/08/17 10:15 Dose: 1,000 mg Metoprolol Succinate (Toprol Xl) 50 mg PO DAILY [facility] Last Admin: 03/08/17 10:15 Dose: 50 mg Olanzapine (Zyprexa Zydis) 5 mg PO HS [facility] Last Admin: 03/07/17 20:19 Dose: 5 mg Pioglitazone HCl (Actos) 30 mg PO DAILY [facility] Last Admin: 03/08/17 10:16 Dose: 30 mg Polyethylene Glycol (Miralax) 17 gm PO DAILY PRN PRN Reason: Constipation Potassium Chloride (K-Dur) 20 meq PO BIDWM [facility] Last Admin: 03/08/17 10:15 Dose: 20 meq Fluticasone/Salmeterol (Advair Diskus) 1 puff ORAL INH BID [facility] Last Admin: 03/08/17 09:27 Dose: Not Given Subjective: Patient seen and chart reviewed. Nursing reports pt slept 7 hours but it was interrupted and had some aggression with cares at 0400. PT [id number] Ativan this AM for some agitation. On face to face the pt is pleasant but confused. She states her mood is stable but she is looking for her and is not sure where he is. She denies any pain. Tolerating meds Start Time: 10:45 Stop Time: 11:00 Mental Status Exam Vitals: Last Vital Signs Temp 96.8 F 03/08/17 11:15 Pulse 103 H 03/08/17 11:15 Resp 16 03/08/17 11:15 BP 141/58 H 03/08/17 11:15 Pulse Ox 98 03/08/17 11:15 Height: 1.65 m Weight: 79.9 kg - Mental Status Exam Muscle Strength/Tone: Normal Dressing: Casual Grooming: Fair Attitude: Cooperative Motor Activity: Normal Eye Contact: Fair Speech: Slowed Volume: Soft Rhythm: Appropriate Rhythm Orientation: Disoriented to time, Disoriented to place, Disoriented to situation , Oriented to person Mood: Euthymic (labile affect - sundowns in the evening) Rate of Thoughts: Delayed Thought Organization: Confused Associations: Illogical Abstract Reasoning: Impaired, concrete Thought Content: Normal Perception/Psychotic: Perception Normal Language: Naming Impaired Fund of Knowledge: Poor fund of knowledge Memory: Poor-immediate, Poor-recent Suicidal Ideation: Denies Homicidal Ideation: Denies Insight: Impaired Judgement: Impaired Impulse Control: Poor - Laboratory Result Diagrams: 03/04/17 16:28 03/04/17 16:28 Assessment and Plan (1) Major neurocognitive disorder Problem details: mixed etiology (Alzheimer's and frontotemporal disease), moderate, with behavioral disturbance Current visit: Yes Status: Acute (2) Dyslipidemia Current visit: Yes Status: Acute (3) Hypertension Current visit: Yes Status: Acute (4) Diabetes mellitus, type II Current visit: Yes Status: Acute (5) COPD (chronic obstructive pulmonary disease) Current visit: Yes Status: Acute (6) Hypothyroidism Current visit: Yes Status: Acute (7) Urinary tract infection Current visit: Yes Status: Acute (8) Delirium Problem details: due to UTI (new-onset 03/06) Current visit: Yes Status: Acute Hospital Course Summary Disclaimer: The visit summary below is not to be considered part of the above Progress Note. Hospital Course: At admission: Lorazepam tapered from 1mg PO TID to 0.5mg PO TID with plan to further taper/discontinue. 03/01/17 Pt was confused and agitated last night and appears to be sundowning as she does well during the day. Will continue use of PRN's for now and monitor behavior. 03/02/17 Pt improved. No behaviors noted. Continue current care. 03/03/17 Psych: Will taper Ativan to 0.5mg PO at HS only and monitor response; will likely need additional medication due to sundowning. 03/04/17 Psych: Will order UA due to concern for delirium due to UTI. 03/05/17 Psych: UTI being treated with Rocephin; will schedule Zyprexa Zydis 2.5mg PO with dinner to target sundowning, overnight agitation. Continue to monitor and re-evaluate necessity as delirium due to UTI resolves. 03/06/17 Psych: Agitation, combativeness improving with treatment of UTI and resolving delirium. Continue to monitor and assess whether Zyprexa continues to be necessary afterwards for sundowning. Will need to evaluate patient for SNU. 03/07- Overall appears to be medically stable. Reviewed UA culture from 03/04 which reveled mixed yessenia. No treatment required. BP appear mostly well controlled BGM under good control Psych notes reviewed 03/07/17 Psych: Will increase Zyprexa to 5mg at HS. Monitor mood, behavior and response to treatment. May consider decreasing back to 2.5mg as delirium resolves though she still has underlying sundowning. 03/08/17 Some agitation with cares and irritability in the AM but improved. Continue current care
[2017-03-08] MEDS: LORazepam 0.5 MG TABLET PO SCH (20:02)
[2017-03-08] MEDS: OLANZapine ODT 5 MG TABLET PO SCH (20:03)
[2017-03-09] MEDS: METFORMIN 1,000 MG TABLET PO SCH ×3 (01:37→16:46)
[2017-03-09] MEDS: LEVOTHYROXINE 112 MCG TABLET PO SCH (10:10)
[2017-03-09] MEDS: PIOGLITAZONE 30 MG TABLET PO SCH (10:11)
[2017-03-09] MEDS: FAMOTIDINE 20 MG TABLET PO SCH ×2 (10:11→19:51)
--- NOTE | 2017-03-09 11:13 | Neuropsych Progress Note ---
[facility] Subjective Date: 03/09/17 - Sujective/Severity of Illness Medications: Acetaminophen (Tylenol Arthritis) 650 mg PO Q6H PRN PRN Reason: Pain Last Admin: 03/07/17 04:05 Dose: 650 mg Famotidine (Pepcid) 20 mg PO BID [facility] Last Admin: 03/09/17 10:11 Dose: 20 mg Haloperidol (Haldol) 0.5 mg PO Q6H PRN PRN Reason: Extreme agitation Last Admin: 03/03/17 23:40 Dose: 0.5 mg Haloperidol Lactate (Haldol) 0.5 mg IM Q6H PRN PRN Reason: Extreme agitation Last Admin: 03/04/17 20:03 Dose: 0.5 mg Levothyroxine Sodium (Synthroid) 112 mcg PO ACB [facility] Last Admin: 03/09/17 10:10 Dose: 112 mcg Loperamide HCl (Imodium) 2 mg PO QID PRN; Protocol PRN Reason: Diarrhea Lorazepam (Ativan) 0.5 mg PO Q6H PRN PRN Reason: Extreme agitation Lorazepam (Ativan Inj) 0.5 mg IM Q6H PRN PRN Reason: Extreme agitation Last Admin: 03/08/17 09:47 Dose: 0.5 mg Lorazepam (Ativan) 0.5 mg PO HS [facility] Last Admin: 03/08/17 20:02 Dose: 0.5 mg Lorazepam (Ativan Intensol) 0.5 mg SL HS PRN PRN Reason: Refusing scheduled PO tab Last Admin: 03/07/17 03:26 Dose: 0.5 mg Magnesium Hydroxide (Mom) 30 ml PO DAILY PRN PRN Reason: Constipation Last Admin: 03/07/17 13:19 Dose: 30 ml Metformin HCl (Glucophage) 1,000 mg PO BIDWM [facility] Last Admin: 03/09/17 10:11 Dose: 1,000 mg Metoprolol Succinate (Toprol Xl) 50 mg PO DAILY [facility] Last Admin: 03/09/17 10:11 Dose: 50 mg Olanzapine (Zyprexa Zydis) 5 mg PO HS [facility] Last Admin: 03/08/17 20:03 Dose: 5 mg Pioglitazone HCl (Actos) 30 mg PO DAILY [facility] Last Admin: 03/09/17 10:11 Dose: 30 mg Polyethylene Glycol (Miralax) 17 gm PO DAILY PRN PRN Reason: Constipation Potassium Chloride (K-Dur) 20 meq PO BIDWM [facility] Last Admin: 03/09/17 10:11 Dose: 20 meq Fluticasone/Salmeterol (Advair Diskus) 1 puff ORAL INH BID [facility] Last Admin: 03/08/17 20:23 Dose: 1 puff Subjective: Patient seen and chart reviewed. Nursing reports pt slept well and has a good appetite. Pt still has some agitation with cares at times. On face to face the pt states she is doing well. She is pleasant but confused. Tolerating meds. She voices no concerns at this time. Start Time: 11:00 Stop Time: 11:15 Mental Status Exam Vitals: Last Vital Signs Temp 96.9 F 03/08/17 20:38 Pulse 76 03/08/17 20:38 Resp 18 03/08/17 20:38 BP 151/67 H 03/08/17 20:38 Pulse Ox 99 03/08/17 20:38 Height: 1.65 m Weight: 77.7 kg - Mental Status Exam Muscle Strength/Tone: Normal Dressing: Casual Grooming: Fair Attitude: Cooperative Motor Activity: Normal Eye Contact: Fair Speech: Slowed Volume: Soft Rhythm: Appropriate Rhythm Orientation: Disoriented to time, Disoriented to place, Disoriented to situation , Oriented to person Mood: Euthymic (labile affect - sundowns in the evening) Rate of Thoughts: Delayed Thought Organization: Confused Associations: Illogical Abstract Reasoning: Impaired, concrete Thought Content: Normal Perception/Psychotic: Perception Normal Language: Naming Impaired Fund of Knowledge: Poor fund of knowledge Memory: Poor-immediate, Poor-recent Suicidal Ideation: Denies Homicidal Ideation: Denies Insight: Impaired Judgement: Impaired Impulse Control: Poor - Laboratory Result Diagrams: 03/04/17 16:28 03/04/17 16:28 Assessment and Plan (1) Major neurocognitive disorder Problem details: mixed etiology (Alzheimer's and frontotemporal disease), moderate, with behavioral disturbance Current visit: Yes Status: Acute (2) Dyslipidemia Current visit: Yes Status: Acute (3) Hypertension Current visit: Yes Status: Acute (4) Diabetes mellitus, type II Current visit: Yes Status: Acute (5) COPD (chronic obstructive pulmonary disease) Current visit: Yes Status: Acute (6) Hypothyroidism Current visit: Yes Status: Acute (7) Urinary tract infection Current visit: Yes Status: Acute (8) Delirium Problem details: due to UTI (new-onset 03/06) Current visit: Yes Status: Acute Hospital Course Summary Disclaimer: The visit summary below is not to be considered part of the above Progress Note. Hospital Course: At admission: Lorazepam tapered from 1mg PO TID to 0.5mg PO TID with plan to further taper/discontinue. 03/01/17 Pt was confused and agitated last night and appears to be sundowning as she does well during the day. Will continue use of PRN's for now and monitor behavior. 03/02/17 Pt improved. No behaviors noted. Continue current care. 03/03/17 Psych: Will taper Ativan to 0.5mg PO at HS only and monitor response; will likely need additional medication due to sundowning. 03/04/17 Psych: Will order UA due to concern for delirium due to UTI. 03/05/17 Psych: UTI being treated with Rocephin; will schedule Zyprexa Zydis 2.5mg PO with dinner to target sundowning, overnight agitation. Continue to monitor and re-evaluate necessity as delirium due to UTI resolves. 03/06/17 Psych: Agitation, combativeness improving with treatment of UTI and resolving delirium. Continue to monitor and assess whether Zyprexa continues to be necessary afterwards for sundowning. Will need to evaluate patient for SNU. 03/07- Overall appears to be medically stable. Reviewed UA culture from 03/04 which reveled mixed yessenia. No treatment required. BP appear mostly well controlled BGM under good control Psych notes reviewed 03/07/17 Psych: Will increase Zyprexa to 5mg at HS. Monitor mood, behavior and response to treatment. May consider decreasing back to 2.5mg as delirium resolves though she still has underlying sundowning. 03/08/17 Some agitation with cares and irritability in the AM but improved. Continue current care 03/09/17 Remains agitated at times. Continue current care
--- NOTE | 2017-03-09 16:35 | Progress Note ---
- Date 03/09/17 Subjective: Linda is seen while sitting in the day room while watching TV. She has a pleasant affect and denies any complaints or concerns. No chest pain, shortness of breath, abdominal pain, nausea, vomiting or dysuria. Her appetite is stable and bowels are moving. She is sitting in the chair with a blanket with a monkey on it which is is quite taken with. Nursing reports that overall , she is doing well but continues to have some issues with sundowning. Objective Vital signs: Temperature 96.9 F 03/08/17 20:38 Pulse Rate 76 03/08/17 20:38 Respiratory Rate 18 03/08/17 20:38 Blood Pressure 151/67 H 03/08/17 20:38 Pulse Oximetry 99 03/08/17 20:38 Height/Weight/BMI: Height 5 ft 5 in Weight 171 lb 4.787 oz Body Mass Index 29.2 - Constitutional Present: no acute distress, well nourished, well developed, cooperative - Routine HEENT Exam Head: Present: normocephalic, atraumatic Eye: Present: PERRL. Absent: conjunctival icterus ENT: Present: mucous membranes moist - Routine Respiratory Exam Present: CTA bilaterally. Absent: rales, rhonchi, stridor, wheezes, crackles - Routine Cardiovascular Exam Present: RRR, S1, S2 - Routine Abdominal Exam Present: soft, normoactive bowel sounds, non distended, non tender - Routine Extremities Exam Present: edema (trace), full ROM, pulses intact - Routine Back/Spine/Pelvis Exam Back/Spine: Present: full ROM. Absent: vertebral tenderness - Routine Musculoskeletal Exam Musculoskeletal: Present: moving extremities well - Routine Skin Exam Present: intact, dry, warm. Absent: jaundice Comments: afebrile - Routine Neurological Exam Present: alert, moving all extremities, normal speech. Absent: facial asymmetry - Routine Lymphatic Exam Lymphatic: Absent: lymphedema - Routine Psychiatric Exam Present: cooperative Results - Labs CBC & Chem 7: 03/04/17 16:28 03/04/17 16:28 Microbiology Results: Microbiology 03/04/17 10:00 Urine, Voided (Cc/notcc) Urine Culture - Final Mixed Bacterial Yessenia Present -No further testing will be performed Assessment and Plan (1) Dementia with behavioral problem Current visit: Yes Status: Acute Assessment and Plan: Impression Dementia with behaviors Hypertension Dyslipidemia Type II diabetes COPD Hypothyroidism Plan - 03/09/17 Overall, [place] appears to be medically stable. Anticipate discharge in near future. Continue psychiatric care per Dr. Lucio and team. Continue to provide safe and supportive environment. UA culture from 03/04 reveled mixed yessenia. No additional treatment indicated. Will recheck CBC and BMP in AM to monitor blood counts, electrolytes and renal function. MD: The patient was discussed with the PA. There have been no labs since the . They're going to be rechecked in the morning. Vital signs are relatively stable. Blood pressures are a little in the high side. Will need to monitor that. I agree with the above assessment and plan. Resuscitation Status: Do Not Resuscitate - Time spent with patient Time with patient PN: 25 minutes - Physician Narrative Physician: Anca Jones MD Narrative: Date: 03/09/17 Time: 1631 Hospital Course Summary Disclaimer: The visit summary below is not to be considered part of the above Progress Note. Hospital Course: At admission: Lorazepam tapered from 1mg PO TID to 0.5mg PO TID with plan to further taper/discontinue. 03/01/17 Pt was confused and agitated last night and appears to be sundowning as she does well during the day. Will continue use of PRN's for now and monitor behavior. 03/02/17 Pt improved. No behaviors noted. Continue current care. 03/03/17 Psych: Will taper Ativan to 0.5mg PO at HS only and monitor response; will likely need additional medication due to sundowning. 03/04/17 Psych: Will order UA due to concern for delirium due to UTI. 03/05/17 Psych: UTI being treated with Rocephin; will schedule Zyprexa Zydis 2.5mg PO with dinner to target sundowning, overnight agitation. Continue to monitor and re-evaluate necessity as delirium due to UTI resolves. 03/06/17 Psych: Agitation, combativeness improving with treatment of UTI and resolving delirium. Continue to monitor and assess whether Zyprexa continues to be necessary afterwards for sundowning. Will need to evaluate patient for SNU. 03/07- Overall appears to be medically stable. Reviewed UA culture from 03/04 which reveled mixed yessenia. No treatment required. BP appear mostly well controlled BGM under good control Psych notes reviewed 03/07/17 Psych: Will increase Zyprexa to 5mg at HS. Monitor mood, behavior and response to treatment. May consider decreasing back to 2.5mg as delirium resolves though she still has underlying sundowning. 03/08/17 Some agitation with cares and irritability in the AM but improved. Continue current care 03/09/17 Remains agitated at times. Continue current care Plan - 03/09/17 Overall, Linda appears to be medically stable. Anticipate discharge in near future. Continue psychiatric care per Dr. Lucio and team. Continue to provide safe and supportive environment. UA culture from 03/04 reveled mixed yessenia. No additional treatment indicated. Will recheck CBC and BMP in AM to monitor blood counts, electrolytes and renal function.
[2017-03-09] MEDS: LORazepam 0.5 MG TABLET PO SCH (19:51)
[2017-03-09] MEDS: OLANZapine ODT 5 MG TABLET PO SCH (19:51)
[2017-03-10] MEDS: LORazepam 0.5 MG TABLET PO SCH (01:03)
[2017-03-10] MEDS: FAMOTIDINE 20 MG TABLET PO SCH ×3 (01:03→20:28)
[2017-03-10] MEDS: OLANZapine ODT 5 MG TABLET PO SCH ×2 (01:12→20:28)
[2017-03-10] MEDS: METFORMIN 1,000 MG TABLET PO SCH ×2 (09:18→17:13)
[2017-03-10] MEDS: LEVOTHYROXINE 112 MCG TABLET PO SCH (09:18)
[2017-03-10] MEDS: PIOGLITAZONE 30 MG TABLET PO SCH (09:18)
--- NOTE | 2017-03-10 15:18 | Neuropsych Progress Note ---
[facility] Subjective Date: 03/10/17 - Sujective/Severity of Illness Medications: Acetaminophen (Tylenol Arthritis) 650 mg PO Q6H PRN PRN Reason: Pain Last Admin: 03/07/17 04:05 Dose: 650 mg Famotidine (Pepcid) 20 mg PO BID [facility] Last Admin: 03/10/17 09:19 Dose: 20 mg Haloperidol (Haldol) 0.5 mg PO Q6H PRN PRN Reason: Extreme agitation Last Admin: 03/03/17 23:40 Dose: 0.5 mg Haloperidol Lactate (Haldol) 0.5 mg IM Q6H PRN PRN Reason: Extreme agitation Last Admin: 03/04/17 20:03 Dose: 0.5 mg Levothyroxine Sodium (Synthroid) 112 mcg PO ACB [facility] Last Admin: 03/10/17 09:18 Dose: 112 mcg Loperamide HCl (Imodium) 2 mg PO QID PRN; Protocol PRN Reason: Diarrhea Lorazepam (Ativan) 0.5 mg PO Q6H PRN PRN Reason: Extreme agitation Lorazepam (Ativan Inj) 0.5 mg IM Q6H PRN PRN Reason: Extreme agitation Last Admin: 03/08/17 09:47 Dose: 0.5 mg Lorazepam (Ativan) 0.5 mg PO HS [facility] Last Admin: 03/10/17 01:03 Dose: Not Given Lorazepam (Ativan Intensol) 0.5 mg SL HS PRN PRN Reason: Refusing scheduled PO tab Last Admin: 03/07/17 03:26 Dose: 0.5 mg Magnesium Hydroxide (Mom) 30 ml PO DAILY PRN PRN Reason: Constipation Last Admin: 03/07/17 13:19 Dose: 30 ml Metformin HCl (Glucophage) 1,000 mg PO BIDWM [facility] Last Admin: 03/10/17 09:18 Dose: 1,000 mg Metoprolol Succinate (Toprol Xl) 50 mg PO DAILY [facility] Last Admin: 03/10/17 09:18 Dose: 50 mg Olanzapine (Zyprexa Zydis) 5 mg PO HS [facility] Last Admin: 03/10/17 01:12 Dose: Not Given Pioglitazone HCl (Actos) 30 mg PO DAILY [facility] Last Admin: 03/10/17 09:18 Dose: 30 mg Polyethylene Glycol (Miralax) 17 gm PO DAILY PRN PRN Reason: Constipation Potassium Chloride (K-Dur) 20 meq PO BIDWM [facility] Last Admin: 03/10/17 09:19 Dose: 20 meq Fluticasone/Salmeterol (Advair Diskus) 1 puff ORAL INH BID [facility] Last Admin: 03/09/17 20:57 Dose: Not Given Subjective: Patient seen and chart reviewed. Case discussed with treatment team. On interview, patient is pleasant though confused. She reports her mood is "great" and she feels well physically. Patient denies any SI, HI or AVH. Patient denies any adverse side effects related to psychotropic medications. Nursing staff report patient awoke overnight and was combative, and continues to be agitated when woken up in the morning. Patient has been adherent with medications. Patient slept 8 hours overnight. VSS. Patient is eating well. Psychotropic PRNs required in the past 24 hours: none. Start Time: 10:00 Stop Time: 10:20 Mental Status Exam Vitals: Last Vital Signs Temp 96.5 F L 03/10/17 08:00 Pulse 105 H 03/10/17 08:00 Resp 16 03/10/17 08:00 BP 128/67 03/10/17 08:00 Pulse Ox 98 03/10/17 08:00 Height: 1.65 m Weight: 77.7 kg - Mental Status Exam Muscle Strength/Tone: Normal Dressing: Casual Grooming: Fair Attitude: Cooperative, Combative (in evening, overnight) Motor Activity: Normal Eye Contact: Fair Speech: Slowed Volume: Soft Rhythm: Appropriate Rhythm Orientation: Disoriented to time, Disoriented to place, Disoriented to situation , Oriented to person Mood: Euthymic (labile affect - sundowns in the evening) Rate of Thoughts: Delayed Thought Organization: Confused Associations: Illogical Abstract Reasoning: Impaired, concrete Thought Content: Normal Perception/Psychotic: Perception Normal Language: Naming Impaired Fund of Knowledge: Poor fund of knowledge Memory: Poor-immediate, Poor-recent Suicidal Ideation: Denies Homicidal Ideation: Denies Insight: Impaired Judgement: Impaired Impulse Control: Poor - Laboratory Result Diagrams: 03/04/17 16:28 03/04/17 16:28 Assessment and Plan (1) Major neurocognitive disorder Problem details: mixed etiology (Alzheimer's and frontotemporal disease), moderate, with behavioral disturbance Current visit: Yes Status: Acute (2) Dyslipidemia Current visit: Yes Status: Acute (3) Hypertension Current visit: Yes Status: Acute (4) Diabetes mellitus, type II Current visit: Yes Status: Acute (5) COPD (chronic obstructive pulmonary disease) Current visit: Yes Status: Acute (6) Hypothyroidism Current visit: Yes Status: Acute (7) Delirium Problem details: due to UTI (new-onset 03/06) Current visit: Yes Status: Acute (8) Urinary tract infection Current visit: Yes Status: Acute Will plan to transition from Zyprexa to Risperdal. For today, will schedule Risperdal 1mg PO at 1600 and decrease Zyprexa to 2.5mg PO q HS. Will continue cross-over tomorrow. Monitor mood, behavior and response to treatment. Hospital Course Summary Disclaimer: The visit summary below is not to be considered part of the above Progress Note. Hospital Course: At admission: Lorazepam tapered from 1mg PO TID to 0.5mg PO TID with plan to further taper/discontinue. 03/01/17 Pt was confused and agitated last night and appears to be sundowning as she does well during the day. Will continue use of PRN's for now and monitor behavior. 03/02/17 Pt improved. No behaviors noted. Continue current care. 03/03/17 Psych: Will taper Ativan to 0.5mg PO at HS only and monitor response; will likely need additional medication due to sundowning. 03/04/17 Psych: Will order UA due to concern for delirium due to UTI. 03/05/17 Psych: UTI being treated with Rocephin; will schedule Zyprexa Zydis 2.5mg PO with dinner to target sundowning, overnight agitation. Continue to monitor and re-evaluate necessity as delirium due to UTI resolves. 03/06/17 Psych: Agitation, combativeness improving with treatment of UTI and resolving delirium. Continue to monitor and assess whether Zyprexa continues to be necessary afterwards for sundowning. Will need to evaluate patient for SNU. 03/07- Overall appears to be medically stable. Reviewed UA culture from 03/04 which reveled mixed yessenia. No treatment required. BP appear mostly well controlled BGM under good control Psych notes reviewed 03/07/17 Psych: Will increase Zyprexa to 5mg at HS. Monitor mood, behavior and response to treatment. May consider decreasing back to 2.5mg as delirium resolves though she still has underlying sundowning. 03/08/17 Some agitation with cares and irritability in the AM but improved. Continue current care 03/09/17 Remains agitated at times. Continue current care Plan - 03/09/17 Overall, Linda appears to be medically stable. Anticipate discharge in near future. Continue psychiatric care per Dr. Lucio and team. Continue to provide safe and supportive environment. UA culture from 03/04 reveled mixed yessenia. No additional treatment indicated. Will recheck CBC and BMP in AM to monitor blood counts, electrolytes and renal function. 03/10/17 Psych: Will plan to transition from Zyprexa to Risperdal. For today, will schedule Risperdal 1mg PO at 1600 and decrease Zyprexa to 2.5mg PO q HS. Will continue cross-over tomorrow. Monitor mood, behavior and response to treatment.
[2017-03-10] MEDS ORDERED: OLANZapine ODT 5 MG TABLET PO PRN (15:21)
[2017-03-11] MEDS: LEVOTHYROXINE 112 MCG TABLET PO SCH (08:05)
[2017-03-11] MEDS: METFORMIN 1,000 MG TABLET PO SCH ×2 (08:06→17:12)
[2017-03-11] MEDS: FAMOTIDINE 20 MG TABLET PO SCH ×2 (08:06→20:45)
[2017-03-11] MEDS: PIOGLITAZONE 30 MG TABLET PO SCH (08:07)
[2017-03-11] MEDS ORDERED: ACETAMINOPHEN 325 MG TABLET PO PRN (11:08)
--- NOTE | 2017-03-11 14:10 | Neuropsych Progress Note ---
[facility] Subjective Date: 03/11/17 - Sujective/Severity of Illness Medications: Acetaminophen (Tylenol Arthritis) 650 mg PO Q6H PRN PRN Reason: Pain Last Admin: 03/07/17 04:05 Dose: 650 mg Acetaminophen (Tylenol) 650 mg PO Q5H PRN PRN Reason: Pain Last Admin: 03/11/17 11:09 Dose: 650 mg Famotidine (Pepcid) 20 mg PO BID [facility] Last Admin: 03/11/17 08:06 Dose: 20 mg Haloperidol (Haldol) 0.5 mg PO Q6H PRN PRN Reason: Extreme agitation Last Admin: 03/03/17 23:40 Dose: 0.5 mg Haloperidol Lactate (Haldol) 0.5 mg IM Q6H PRN PRN Reason: Extreme agitation Last Admin: 03/04/17 20:03 Dose: 0.5 mg Levothyroxine Sodium (Synthroid) 112 mcg PO ACB [facility] Last Admin: 03/11/17 08:05 Dose: 112 mcg Loperamide HCl (Imodium) 2 mg PO QID PRN; Protocol PRN Reason: Diarrhea Lorazepam (Ativan) 0.5 mg PO Q6H PRN PRN Reason: Extreme agitation Lorazepam (Ativan Inj) 0.5 mg IM Q6H PRN PRN Reason: Extreme agitation Last Admin: 03/08/17 09:47 Dose: 0.5 mg Lorazepam (Ativan Intensol) 0.5 mg SL HS PRN PRN Reason: Refusing scheduled PO tab Last Admin: 03/07/17 03:26 Dose: 0.5 mg Magnesium Hydroxide (Mom) 30 ml PO DAILY PRN PRN Reason: Constipation Last Admin: 03/07/17 13:19 Dose: 30 ml Metformin HCl (Glucophage) 1,000 mg PO BIDWM [facility] Last Admin: 03/11/17 08:06 Dose: 1,000 mg Metoprolol Succinate (Toprol Xl) 50 mg PO DAILY [facility] Last Admin: 03/11/17 08:06 Dose: 50 mg Olanzapine (Zyprexa Zydis) 5 mg PO HS [facility] Last Admin: 03/10/17 20:28 Dose: 5 mg Olanzapine (Zyprexa Zydis) 2.5 mg PO Q6HR PRN PRN Reason: Agitation Last Admin: 03/10/17 17:23 Dose: 2.5 mg Pioglitazone HCl (Actos) 30 mg PO DAILY [facility] Last Admin: 03/11/17 08:07 Dose: 30 mg Polyethylene Glycol (Miralax) 17 gm PO DAILY PRN PRN Reason: Constipation Potassium Chloride (K-Dur) 20 meq PO BIDWM [facility] Last Admin: 03/11/17 08:06 Dose: 20 meq Fluticasone/Salmeterol (Advair Diskus) 1 puff ORAL INH BID [facility] Last Admin: 03/11/17 10:34 Dose: Not Given Subjective: Patient seen and chart reviewed. Case discussed with treatment team. On interview, patient is pleasant though confused. She reports her mood is "great" and she feels well physically. Patient denies any SI, HI or AVH. Patient denies any adverse side effects related to psychotropic medications. Nursing staff report patient was more pleasant this morning. She slapped at staff x2 with cares overnight but this is a significant improvement from previous. Patient has been adherent with medications. Patient slept 8.5 hours overnight. VSS. Patient is eating well. Psychotropic PRNs required in the past 24 hours: Zyprexa Zydis 2.5mg PO given at 1723 yesterday due to upregulation, yelling out. It is believed this helped with last night's improvement in behavior. Start Time: 09:40 Stop Time: 10:00 Mental Status Exam Vitals: Last Vital Signs Temp 97.2 F 03/11/17 08:00 Pulse 95 03/11/17 08:00 Resp 18 03/11/17 08:00 BP 118/59 03/11/17 08:00 Pulse Ox 96 03/11/17 08:00 Height: 1.65 m Weight: 77.7 kg - Mental Status Exam Muscle Strength/Tone: Normal Dressing: Casual Grooming: Fair Attitude: Cooperative, Combative (in evening, overnight - improved) Motor Activity: Normal Eye Contact: Fair Speech: Slowed Volume: Soft Rhythm: Appropriate Rhythm Orientation: Disoriented to time, Disoriented to place, Disoriented to situation , Oriented to person Mood: Euthymic (labile affect - sundowns in the evening, improving) Affect: Bright (during interview) Rate of Thoughts: Delayed Thought Organization: Confused Associations: Illogical Abstract Reasoning: Impaired, concrete Thought Content: Normal Perception/Psychotic: Perception Normal Language: Naming Impaired Fund of Knowledge: Poor fund of knowledge Memory: Poor-immediate, Poor-recent Suicidal Ideation: Denies Homicidal Ideation: Denies Insight: Impaired Judgement: Impaired Impulse Control: Poor (overnight, improving) - Laboratory Result Diagrams: 03/04/17 16:28 03/04/17 16:28 Assessment and Plan (1) Major neurocognitive disorder Problem details: mixed etiology (Alzheimer's and frontotemporal disease), moderate, with behavioral disturbance Current visit: Yes Status: Acute (2) Dyslipidemia Current visit: Yes Status: Acute (3) Hypertension Current visit: Yes Status: Acute (4) Diabetes mellitus, type II Current visit: Yes Status: Acute (5) COPD (chronic obstructive pulmonary disease) Current visit: Yes Status: Acute (6) Hypothyroidism Current visit: Yes Status: Acute (7) Delirium Problem details: due to UTI (new-onset 03/06) Current visit: Yes Status: Acute (8) Urinary tract infection Current visit: Yes Status: Acute Will schedule Zyprexa Zydis 2.5mg PO at 1600 (before patient tends to upregulate ) and 5mg at HS. When scheduled all with dinnertime, patient was falling asleep too early and then awakening in the last chalker. Hospital Course Summary Disclaimer: The visit summary below is not to be considered part of the above Progress Note. Hospital Course: At admission: Lorazepam tapered from 1mg PO TID to 0.5mg PO TID with plan to further taper/discontinue. 03/01/17 Pt was confused and agitated last night and appears to be sundowning as she does well during the day. Will continue use of PRN's for now and monitor behavior. 03/02/17 Pt improved. No behaviors noted. Continue current care. 03/03/17 Psych: Will taper Ativan to 0.5mg PO at HS only and monitor response; will likely need additional medication due to sundowning. 03/04/17 Psych: Will order UA due to concern for delirium due to UTI. 03/05/17 Psych: UTI being treated with Rocephin; will schedule Zyprexa Zydis 2.5mg PO with dinner to target sundowning, overnight agitation. Continue to monitor and re-evaluate necessity as delirium due to UTI resolves. 03/06/17 Psych: Agitation, combativeness improving with treatment of UTI and resolving delirium. Continue to monitor and assess whether Zyprexa continues to be necessary afterwards for sundowning. Will need to evaluate patient for SNU. 03/07- Overall appears to be medically stable. Reviewed UA culture from 03/04 which reveled mixed yessenia. No treatment required. BP appear mostly well controlled BGM under good control Psych notes reviewed 03/07/17 Psych: Will increase Zyprexa to 5mg at HS. Monitor mood, behavior and response to treatment. May consider decreasing back to 2.5mg as delirium resolves though she still has underlying sundowning. 03/08/17 Some agitation with cares and irritability in the AM but improved. Continue current care 03/09/17 Remains agitated at times. Continue current care Plan - 03/09/17 Overall, Linda appears to be medically stable. Anticipate discharge in near future. Continue psychiatric care per Dr. Lucio and team. Continue to provide safe and supportive environment. UA culture from 03/04 reveled mixed yessenia. No additional treatment indicated. Will recheck CBC and BMP in AM to monitor blood counts, electrolytes and renal function. 03/10/17 Psych: Plan to discontinue scheduled/PRN Ativan in case it is disinhibiting patient and allow only PRN Zyprexa for agitation. 03/11/17 Psych: Will schedule Zyprexa Zydis 2.5mg PO at 1600 (before patient tends to upregulate) and 5mg at HS. When scheduled all with dinnertime, patient was falling asleep too early and then awakening in the last chalker.
[2017-03-11] MEDS: OLANZapine ODT 5 MG TABLET PO SCH ×2 (17:08→20:45)
--- NOTE | 2017-03-12 11:56 | Progress Note ---
- Date 03/12/17 Subjective: Aureliano is seen today while sitting in the day room and reports that she is feeling "great". She denies any complaints or concerns. No chest pain, shortness of breath, abdominal pain, nausea, vomiting or dysuria. Her appetite is good and bowels are moving. Nursing reports that she had some behaviors with increased confusion overnight a few nights ago, but doing better today. Recent labs today revealed new anemia with hemoglobin 11.5 and otherwise unremarkable. Objective Vital signs: Temperature 97.2 F 03/11/17 21:44 Pulse Rate 86 03/11/17 21:44 Respiratory Rate 18 03/11/17 21:44 Blood Pressure 148/90 H 03/11/17 21:44 Pulse Oximetry 99 03/11/17 21:44 Height/Weight/BMI: Height 5 ft 5 in Weight 171 lb 4.787 oz Body Mass Index 29.2 Comments: sitting in day room, looking out the window. Very good mood, cheerful. - Constitutional Present: no acute distress, well nourished, well developed, cooperative - Routine HEENT Exam Head: Present: normocephalic, atraumatic Eye: Present: PERRL. Absent: conjunctival icterus ENT: Present: mucous membranes moist - Routine Respiratory Exam Present: CTA bilaterally. Absent: rales, rhonchi, stridor, wheezes, crackles - Routine Cardiovascular Exam Present: RRR, S1, S2 - Routine Abdominal Exam Present: soft, normoactive bowel sounds, non distended, non tender - Routine Extremities Exam Present: edema, non tender, pulses intact - Routine Back/Spine/Pelvis Exam Back/Spine: Present: full ROM. Absent: vertebral tenderness - Routine Musculoskeletal Exam Musculoskeletal: Present: moving extremities well - Routine Skin Exam Present: dry, warm. Absent: jaundice Comments: afebrile - Routine Neurological Exam Present: alert (orientated to person only), moving all extremities, hearing grossly intact, normal speech - Routine Lymphatic Exam Lymphatic: Absent: lymphedema - Routine Psychiatric Exam Present: cooperative Results - Labs CBC & Chem 7: 03/12/17 09:20 03/12/17 09:20 Microbiology Results: Microbiology 03/04/17 10:00 Urine, Voided (Cc/notcc) Urine Culture - Final Mixed Bacterial Yessenia Present -No further testing will be performed Assessment and Plan (1) Dementia with behavioral problem Current visit: Yes Status: Acute Assessment and Plan: Impression Dementia with behaviors Hypertension Dyslipidemia Type II diabetes COPD Hypothyroidism Plan - 03/12/17 Overall, Linda appears to be medically stable. Anticipate discharge in near future. Continue psychiatric care per Dr. Lucio and team. Continue to provide safe and supportive environment. Patient reported to continue have issues with sundowning. Repeat labs on 03/12/17 revealed new mild anemia with hemoglobin 11.5. No obvious signs of bleeding. Will continue to monitor periodically. GI Prophylaxis: Pepcid Resuscitation Status: Do Not Resuscitate - Time spent with patient Time with patient PN: 25 minutes - Physician Narrative Physician: Poornima Solares MD Narrative: Date: 03/12/17 Time: 1153 Hospital Course Summary Disclaimer: The visit summary below is not to be considered part of the above Progress Note. Hospital Course: At admission: Lorazepam tapered from 1mg PO TID to 0.5mg PO TID with plan to further taper/discontinue. 03/01/17 Pt was confused and agitated last night and appears to be sundowning as she does well during the day. Will continue use of PRN's for now and monitor behavior. 03/02/17 Pt improved. No behaviors noted. Continue current care. 03/03/17 Psych: Will taper Ativan to 0.5mg PO at HS only and monitor response; will likely need additional medication due to sundowning. 03/04/17 Psych: Will order UA due to concern for delirium due to UTI. 03/05/17 Psych: UTI being treated with Rocephin; will schedule Zyprexa Zydis 2.5mg PO with dinner to target sundowning, overnight agitation. Continue to monitor and re-evaluate necessity as delirium due to UTI resolves. 03/06/17 Psych: Agitation, combativeness improving with treatment of UTI and resolving delirium. Continue to monitor and assess whether Zyprexa continues to be necessary afterwards for sundowning. Will need to evaluate patient for SNU. 03/07- Overall appears to be medically stable. Reviewed UA culture from 03/04 which reveled mixed yessenia. No treatment required. BP appear mostly well controlled BGM under good control Psych notes reviewed 03/07/17 Psych: Will increase Zyprexa to 5mg at HS. Monitor mood, behavior and response to treatment. May consider decreasing back to 2.5mg as delirium resolves though she still has underlying sundowning. 03/08/17 Some agitation with cares and irritability in the AM but improved. Continue current care 03/09/17 Remains agitated at times. Continue current care Plan - 03/09/17 Overall, Linda appears to be medically stable. Anticipate discharge in near future. Continue psychiatric care per Dr. Lucio and team. Continue to provide safe and supportive environment. UA culture from 03/04 reveled mixed yessenia. No additional treatment indicated. Will recheck CBC and BMP in AM to monitor blood counts, electrolytes and renal function. 03/10/17 Psych: Plan to discontinue scheduled/PRN Ativan in case it is disinhibiting patient and allow only PRN Zyprexa for agitation. 03/11/17 Psych: Will schedule Zyprexa Zydis 2.5mg PO at 1600 (before patient tends to upregulate) and 5mg at HS. When scheduled all with dinnertime, patient was falling asleep too early and then awakening in the solvent process extractor operator. Plan - 03/12/17 Overall, Linda appears to be medically stable. Anticipate discharge in near future. Continue psychiatric care per Dr. Lucio and team. Continue to provide safe and supportive environment. Patient reported to continue have issues with sundowning. Repeat labs on 03/12/17 revealed new mild anemia with hemoglobin 11.5. No obvious signs of bleeding. Will continue to monitor periodically.
[2017-03-12] MEDS: LEVOTHYROXINE 112 MCG TABLET PO SCH (12:08)
[2017-03-12] MEDS: METFORMIN 1,000 MG TABLET PO SCH ×2 (12:09→17:11)
[2017-03-12] MEDS: PIOGLITAZONE 30 MG TABLET PO SCH (12:09)
[2017-03-12] MEDS: FAMOTIDINE 20 MG TABLET PO SCH ×2 (12:09→20:05)
--- NOTE | 2017-03-12 16:18 | Neuropsych Progress Note ---
[facility] Subjective Date: 03/13/17 - Sujective/Severity of Illness Medications: Acetaminophen (Tylenol Arthritis) 650 mg PO Q6H PRN PRN Reason: Pain Last Admin: 03/07/17 04:05 Dose: 650 mg Acetaminophen (Tylenol) 650 mg PO Q5H PRN PRN Reason: Pain Last Admin: 03/11/17 11:09 Dose: 650 mg Famotidine (Pepcid) 20 mg PO BID [facility] Last Admin: 03/12/17 12:09 Dose: 20 mg Haloperidol (Haldol) 0.5 mg PO Q6H PRN PRN Reason: Extreme agitation Last Admin: 03/03/17 23:40 Dose: 0.5 mg Haloperidol Lactate (Haldol) 0.5 mg IM Q6H PRN PRN Reason: Extreme agitation Last Admin: 03/04/17 20:03 Dose: 0.5 mg Levothyroxine Sodium (Synthroid) 112 mcg PO ACB [facility] Last Admin: 03/12/17 12:08 Dose: 112 mcg Loperamide HCl (Imodium) 2 mg PO QID PRN; Protocol PRN Reason: Diarrhea Lorazepam (Ativan) 0.5 mg PO Q6H PRN PRN Reason: Extreme agitation Lorazepam (Ativan Inj) 0.5 mg IM Q6H PRN PRN Reason: Extreme agitation Last Admin: 03/08/17 09:47 Dose: 0.5 mg Lorazepam (Ativan Intensol) 0.5 mg SL HS PRN PRN Reason: Refusing scheduled PO tab Last Admin: 03/07/17 03:26 Dose: 0.5 mg Magnesium Hydroxide (Mom) 30 ml PO DAILY PRN PRN Reason: Constipation Last Admin: 03/07/17 13:19 Dose: 30 ml Metformin HCl (Glucophage) 1,000 mg PO BIDWM [facility] Last Admin: 03/12/17 12:09 Dose: 1,000 mg Metoprolol Succinate (Toprol Xl) 50 mg PO DAILY [facility] Last Admin: 03/12/17 12:09 Dose: 50 mg Olanzapine (Zyprexa Zydis) 5 mg PO HS [facility] Last Admin: 03/11/17 20:45 Dose: 5 mg Olanzapine (Zyprexa Zydis) 2.5 mg PO Q6HR PRN PRN Reason: Agitation Last Admin: 03/10/17 17:23 Dose: 2.5 mg Olanzapine (Zyprexa Zydis) 2.5 mg PO 16 [facility] Last Admin: 03/11/17 17:08 Dose: 2.5 mg Pioglitazone HCl (Actos) 30 mg PO DAILY [facility] Last Admin: 03/12/17 12:09 Dose: 30 mg Polyethylene Glycol (Miralax) 17 gm PO DAILY PRN PRN Reason: Constipation Potassium Chloride (K-Dur) 20 meq PO BIDWM [facility] Last Admin: 03/12/17 12:09 Dose: 20 meq Fluticasone/Salmeterol (Advair Diskus) 1 puff ORAL INH BID [facility] Last Admin: 03/12/17 10:43 Dose: 1 puff Subjective: Patient seen and chart reviewed. Case discussed with treatment team. On interview, patient is pleasant though confused. She reports her mood is "great" and she feels well physically. Patient denies any SI, HI or AVH. Patient denies any adverse side effects related to psychotropic medications. Nursing staff report patient was agitated this morning with lab draw but otherwise did not have behavioral difficulties overnight. Patient slept 8.5 hours overnight. VSS. Patient is eating well. Psychotropic PRNs required in the past 24 hours: None. Start Time: 09:40 Stop Time: 10:00 Mental Status Exam Vitals: Last Vital Signs Temp 96.8 F 03/12/17 08:00 Pulse 112 H 03/12/17 08:00 Resp 20 03/12/17 08:00 BP 126/65 03/12/17 08:00 Pulse Ox 98 03/12/17 08:00 Height: 1.65 m Weight: 77.7 kg - Mental Status Exam Muscle Strength/Tone: Normal Dressing: Casual Grooming: Fair Attitude: Cooperative, Combative (with lab draw only) Motor Activity: Normal Eye Contact: Fair Speech: Slowed Volume: Soft Rhythm: Appropriate Rhythm Orientation: Disoriented to time, Disoriented to place, Disoriented to situation , Oriented to person Mood: Euthymic (labile affect - sundowns in the evening, improving) Affect: Bright Rate of Thoughts: Delayed Thought Organization: Confused Associations: Illogical Abstract Reasoning: Impaired, concrete Thought Content: Normal Perception/Psychotic: Perception Normal Language: Naming Impaired Fund of Knowledge: Poor fund of knowledge Memory: Poor-immediate, Poor-recent Suicidal Ideation: Denies Homicidal Ideation: Denies Insight: Impaired Judgement: Impaired Impulse Control: Fair - Laboratory Result Diagrams: 03/12/17 09:20 03/12/17 09:20 Laboratory Results - last 24 hr 03/12/17 03/12/17 09:20 09:20 WBC 7.4 RBC 4.36 Hgb 11.5 L Hct 36.3 MCV 83.3 MCH 26.4 MCHC 31.7 RDW Std Deviation 47.6 Plt Count 278 MPV 12.0 Immature Gran % (Auto) 0.1 Neut % (Auto) 54.0 Lymph % (Auto) 37.0 [place] % (Auto) 6.7 Eos % (Auto) 1.9 Baso % (Auto) 0.3 Neut # (Auto) 4.0 Lymph # (Auto) 2.7 [place] # (Auto) 0.5 Eos # (Auto) 0.1 Baso # (Auto) 0.0 Abs Immat Gran (auto) 0.01 Turbidity < 20 Sodium 143 Potassium 4.7 Chloride 107 Carbon Dioxide 25 Anion Gap 11 BUN 19.0 H Creatinine 0.8 GFR Calculation 71 BUN/Creatinine Ratio 24 Glucose 122 H Calculated Osmolality 278 Calcium 10.2 Icterus Index < 2 Specimen Hemolysis < 15 Assessment and Plan (1) Major neurocognitive disorder Problem details: mixed etiology (Alzheimer's and frontotemporal disease), moderate, with behavioral disturbance Current visit: Yes Status: Acute (2) Dyslipidemia Current visit: Yes Status: Acute (3) Hypertension Current visit: Yes Status: Acute (4) Diabetes mellitus, type II Current visit: Yes Status: Acute (5) COPD (chronic obstructive pulmonary disease) Current visit: Yes Status: Acute (6) Hypothyroidism Current visit: Yes Status: Acute (7) Delirium Problem details: due to UTI (new-onset 03/06) Current visit: Yes Status: Acute (8) Urinary tract infection Current visit: Yes Status: Acute Continue current care and begin to make discharge arrangements. Patient will discharge home with per son/DPOA's wishes though we have recommended placement. They agree to provide 24/7 supervision for safety. Hospital Course Summary Disclaimer: The visit summary below is not to be considered part of the above Progress Note. Hospital Course: At admission: Lorazepam tapered from 1mg PO TID to 0.5mg PO TID with plan to further taper/discontinue. 03/01/17 Pt was confused and agitated last night and appears to be sundowning as she does well during the day. Will continue use of PRN's for now and monitor behavior. 03/02/17 Pt improved. No behaviors noted. Continue current care. 03/03/17 Psych: Will taper Ativan to 0.5mg PO at HS only and monitor response; will likely need additional medication due to sundowning. 03/04/17 Psych: Will order UA due to concern for delirium due to UTI. 03/05/17 Psych: UTI being treated with Rocephin; will schedule Zyprexa Zydis 2.5mg PO with dinner to target sundowning, overnight agitation. Continue to monitor and re-evaluate necessity as delirium due to UTI resolves. 03/06/17 Psych: Agitation, combativeness improving with treatment of UTI and resolving delirium. Continue to monitor and assess whether Zyprexa continues to be necessary afterwards for sundowning. Will need to evaluate patient for SNU. 03/07- Overall appears to be medically stable. Reviewed UA culture from 03/04 which reveled mixed yessenia. No treatment required. BP appear mostly well controlled BGM under good control Psych notes reviewed 03/07/17 Psych: Will increase Zyprexa to 5mg at HS. Monitor mood, behavior and response to treatment. May consider decreasing back to 2.5mg as delirium resolves though she still has underlying sundowning. 03/08/17 Some agitation with cares and irritability in the AM but improved. Continue current care 03/09/17 Remains agitated at times. Continue current care Plan - 03/09/17 Overall, Linda appears to be medically stable. Anticipate discharge in near future. Continue psychiatric care per Dr. Lucio and team. Continue to provide safe and supportive environment. UA culture from 03/04 reveled mixed yessenia. No additional treatment indicated. Will recheck CBC and BMP in AM to monitor blood counts, electrolytes and renal function. 03/10/17 Psych: Plan to discontinue scheduled/PRN Ativan in case it is disinhibiting patient and allow only PRN Zyprexa for agitation. 03/11/17 Psych: Will schedule Zyprexa Zydis 2.5mg PO at 1600 (before patient tends to upregulate) and 5mg at HS. When scheduled all with dinnertime, patient was falling asleep too early and then awakening in the behavioral therapy coordinator. Plan - 03/12/17 Overall, Linda appears to be medically stable. Anticipate discharge in near future. Continue psychiatric care per Dr. Lucio and team. Continue to provide safe and supportive environment. Patient reported to continue have issues with sundowning. Repeat labs on 03/12/17 revealed new mild anemia with hemoglobin 11.5. No obvious signs of bleeding. Will continue to monitor periodically. 03/12/17 Psych: Continue current care and begin to make discharge arrangements. Patient will discharge home with per son/DPOA's wishes though we have recommended placement. They agree to provide 24/7 supervision for safety.
[2017-03-12] MEDS: OLANZapine ODT 5 MG TABLET PO SCH ×2 (17:11→18:50)
[2017-03-13] MEDS: PIOGLITAZONE 30 MG TABLET PO SCH (09:06)
[2017-03-13] MEDS: LEVOTHYROXINE 112 MCG TABLET PO SCH (09:06)
[2017-03-13] MEDS: METFORMIN 1,000 MG TABLET PO SCH ×2 (09:06→17:03)
[2017-03-13] MEDS: FAMOTIDINE 20 MG TABLET PO SCH ×2 (09:07→20:18)
--- NOTE | 2017-03-13 13:54 | Neuropsych Progress Note ---
[facility] Subjective Date: 03/13/17 - Sujective/Severity of Illness Medications: Acetaminophen (Tylenol Arthritis) 650 mg PO Q6H PRN PRN Reason: Pain Last Admin: 03/07/17 04:05 Dose: 650 mg Acetaminophen (Tylenol) 650 mg PO Q5H PRN PRN Reason: Pain Last Admin: 03/11/17 11:09 Dose: 650 mg Famotidine (Pepcid) 20 mg PO BID [facility] Last Admin: 03/13/17 09:07 Dose: 20 mg Haloperidol (Haldol) 0.5 mg PO Q6H PRN PRN Reason: Extreme agitation Last Admin: 03/03/17 23:40 Dose: 0.5 mg Haloperidol Lactate (Haldol) 0.5 mg IM Q6H PRN PRN Reason: Extreme agitation Last Admin: 03/04/17 20:03 Dose: 0.5 mg Levothyroxine Sodium (Synthroid) 112 mcg PO ACB [facility] Last Admin: 03/13/17 09:06 Dose: 112 mcg Loperamide HCl (Imodium) 2 mg PO QID PRN; Protocol PRN Reason: Diarrhea Lorazepam (Ativan) 0.5 mg PO Q6H PRN PRN Reason: Extreme agitation Lorazepam (Ativan Inj) 0.5 mg IM Q6H PRN PRN Reason: Extreme agitation Last Admin: 03/08/17 09:47 Dose: 0.5 mg Lorazepam (Ativan Intensol) 0.5 mg SL HS PRN PRN Reason: Refusing scheduled PO tab Last Admin: 03/07/17 03:26 Dose: 0.5 mg Magnesium Hydroxide (Mom) 30 ml PO DAILY PRN PRN Reason: Constipation Last Admin: 03/07/17 13:19 Dose: 30 ml Metformin HCl (Glucophage) 1,000 mg PO BIDWM [facility] Last Admin: 03/13/17 09:06 Dose: 1,000 mg Metoprolol Succinate (Toprol Xl) 50 mg PO DAILY [facility] Last Admin: 03/13/17 09:06 Dose: 50 mg Olanzapine (Zyprexa Zydis) 5 mg PO HS [facility] Last Admin: 03/12/17 18:50 Dose: 5 mg Olanzapine (Zyprexa Zydis) 2.5 mg PO Q6HR PRN PRN Reason: Agitation Last Admin: 03/10/17 17:23 Dose: 2.5 mg Olanzapine (Zyprexa Zydis) 2.5 mg PO 16 [facility] Last Admin: 03/12/17 17:11 Dose: 2.5 mg Pioglitazone HCl (Actos) 30 mg PO DAILY [facility] Last Admin: 03/13/17 09:06 Dose: 30 mg Polyethylene Glycol (Miralax) 17 gm PO DAILY PRN PRN Reason: Constipation Potassium Chloride (K-Dur) 20 meq PO BIDWM [facility] Last Admin: 03/13/17 09:07 Dose: 20 meq Fluticasone/Salmeterol (Advair Diskus) 1 puff ORAL INH BID [facility] Last Admin: 03/13/17 10:43 Dose: 1 puff Subjective: Patient seen and chart reviewed. Case discussed with treatment team. On interview, patient is pleasant though confused. She reports her mood is "great" and she feels well physically. Patient denies any SI, HI or AVH. Patient denies any adverse side effects related to psychotropic medications. Nursing staff report patient was calm and cooperative throughout day yesterday and overnight, without significant behavioral difficulty. Patient slept 8 hours overnight. VSS. Patient is eating well. Psychotropic PRNs required in the past 24 hours: None. Start Time: 09:20 Stop Time: 09:40 Mental Status Exam Vitals: Last Vital Signs Temp 97.0 F 03/13/17 08:00 Pulse 79 03/13/17 08:00 Resp 20 03/13/17 10:43 BP 137/67 03/13/17 08:00 Pulse Ox 100 03/13/17 08:00 Height: 1.65 m Weight: 77.7 kg - Mental Status Exam Muscle Strength/Tone: Normal Dressing: Casual Grooming: Fair Attitude: Cooperative Motor Activity: Normal Eye Contact: Fair Speech: Slowed Volume: Normal Rhythm: Appropriate Rhythm Orientation: Disoriented to time, Disoriented to place, Disoriented to situation , Oriented to person Mood: Euthymic (labile affect - sundowns in the evening, improving) Affect: Bright Rate of Thoughts: Delayed Thought Organization: Confused Associations: Illogical Abstract Reasoning: Impaired, concrete Thought Content: Normal Perception/Psychotic: Perception Normal Language: Naming Impaired Fund of Knowledge: Poor fund of knowledge Memory: Poor-immediate, Poor-recent Suicidal Ideation: Denies Homicidal Ideation: Denies Insight: Impaired Judgement: Impaired Impulse Control: Fair - Laboratory Result Diagrams: 03/12/17 09:20 03/12/17 09:20 Assessment and Plan (1) Major neurocognitive disorder Problem details: mixed etiology (Alzheimer's and frontotemporal disease), moderate, with behavioral disturbance Current visit: Yes Status: Acute (2) Dyslipidemia Current visit: Yes Status: Acute (3) Hypertension Current visit: Yes Status: Acute (4) Diabetes mellitus, type II Current visit: Yes Status: Acute (5) COPD (chronic obstructive pulmonary disease) Current visit: Yes Status: Acute (6) Hypothyroidism Current visit: Yes Status: Acute (7) Delirium Problem details: due to UTI (new-onset 03/06) Current visit: Yes Status: Acute (8) Urinary tract infection Current visit: Yes Status: Acute Patient is doing well. Plan to discharge to home tomorrow with 16/09 supervision for safety, home health services to assist /bench hand machine. Hospital Course Summary Disclaimer: The visit summary below is not to be considered part of the above Progress Note. Hospital Course: At admission: Lorazepam tapered from 1mg PO TID to 0.5mg PO TID with plan to further taper/discontinue. 03/01/17 Pt was confused and agitated last night and appears to be sundowning as she does well during the day. Will continue use of PRN's for now and monitor behavior. 03/02/17 Pt improved. No behaviors noted. Continue current care. 03/03/17 Psych: Will taper Ativan to 0.5mg PO at HS only and monitor response; will likely need additional medication due to sundowning. 03/04/17 Psych: Will order UA due to concern for delirium due to UTI. 03/05/17 Psych: UTI being treated with Rocephin; will schedule Zyprexa Zydis 2.5mg PO with dinner to target sundowning, overnight agitation. Continue to monitor and re-evaluate necessity as delirium due to UTI resolves. 03/06/17 Psych: Agitation, combativeness improving with treatment of UTI and resolving delirium. Continue to monitor and assess whether Zyprexa continues to be necessary afterwards for sundowning. Will need to evaluate patient for SNU. 03/07- Overall appears to be medically stable. Reviewed UA culture from 03/04 which reveled mixed yessenia. No treatment required. BP appear mostly well controlled BGM under good control Psych notes reviewed 03/07/17 Psych: Will increase Zyprexa to 5mg at HS. Monitor mood, behavior and response to treatment. May consider decreasing back to 2.5mg as delirium resolves though she still has underlying sundowning. 03/08/17 Some agitation with cares and irritability in the AM but improved. Continue current care 03/09/17 Remains agitated at times. Continue current care Plan - 03/09/17 Overall, Linda appears to be medically stable. Anticipate discharge in near future. Continue psychiatric care per Dr. Lucio and team. Continue to provide safe and supportive environment. UA culture from 03/04 reveled mixed yessenia. No additional treatment indicated. Will recheck CBC and BMP in AM to monitor blood counts, electrolytes and renal function. 03/10/17 Psych: Plan to discontinue scheduled/PRN Ativan in case it is disinhibiting patient and allow only PRN Zyprexa for agitation. 03/11/17 Psych: Will schedule Zyprexa Zydis 2.5mg PO at 1600 (before patient tends to upregulate) and 5mg at HS. When scheduled all with dinnertime, patient was falling asleep too early and then awakening in the revenue manager. Plan - 03/12/17 Overall, Linda appears to be medically stable. Anticipate discharge in near future. Continue psychiatric care per Dr. Lucio and team. Continue to provide safe and supportive environment. Patient reported to continue have issues with sundowning. Repeat labs on 03/12/17 revealed new mild anemia with hemoglobin 11.5. No obvious signs of bleeding. Will continue to monitor periodically. 03/12/17 Psych: Continue current care and begin to make discharge arrangements. Patient will discharge home with per son/DPOA's wishes though we have recommended placement. They agree to provide 24/7 supervision for safety. 03/13/17 Psych: Patient is doing well. Plan to discharge to home tomorrow with 24 /7 supervision for safety, home health services to assist /bench hand machine.
[2017-03-13] MEDS: OLANZapine ODT 5 MG TABLET PO SCH ×2 (15:59→20:18)
[2017-03-14] MEDS: LEVOTHYROXINE 112 MCG TABLET PO SCH (12:00)
[2017-03-14] MEDS: METFORMIN 1,000 MG TABLET PO SCH (12:00)
[2017-03-14] MEDS: FAMOTIDINE 20 MG TABLET PO SCH (12:01)
[2017-03-14] MEDS: PIOGLITAZONE 30 MG TABLET PO SCH (12:01)
[2017-03-14 12:05] VITALS: BP 128/69; PULSE 105; RESP 16; TEMP 97.6; O2SAT 98
--- NOTE | 2017-03-14 14:26 | Neuropsych Progress Note ---
[facility] Subjective Date: 03/14/17 - Sujective/Severity of Illness Subjective: Patient seen and chart reviewed. Case discussed with treatment team. On interview, patient is pleasant though confused. She reports her mood is "great" and she feels well physically. Patient denies any SI, HI or AVH. Patient denies any adverse side effects related to psychotropic medications. Nursing staff report patient was calm and cooperative throughout day yesterday and overnight, without significant behavioral difficulty. Patient slept 8 hours overnight. VSS. Patient is eating well. Psychotropic PRNs required in the past 24 hours: None. Mental Status Exam Vitals: Last Vital Signs Temp 97.6 F 03/14/17 08:00 Pulse 105 H 03/14/17 08:00 Resp 16 03/14/17 08:00 BP 128/69 03/14/17 08:00 Pulse Ox 98 03/14/17 08:00 Height: 1.65 m Weight: 77.7 kg - Mental Status Exam Muscle Strength/Tone: Normal Dressing: Casual Grooming: Fair Attitude: Cooperative Motor Activity: Normal Eye Contact: Fair Speech: Slowed Volume: Normal Rhythm: Appropriate Rhythm Orientation: Disoriented to time, Disoriented to place, Disoriented to situation , Oriented to person Mood: Euthymic (labile affect - sundowns in the evening, improving) Rate of Thoughts: Delayed Thought Organization: Confused Associations: Illogical Abstract Reasoning: Impaired, concrete Thought Content: Normal Perception/Psychotic: Perception Normal Language: Naming Impaired Fund of Knowledge: Poor fund of knowledge Memory: Poor-immediate, Poor-recent Suicidal Ideation: Denies Homicidal Ideation: Denies Insight: Impaired Judgement: Impaired Impulse Control: Fair - Laboratory Result Diagrams: 03/12/17 09:20 03/12/17 09:20 Assessment and Plan (1) Major neurocognitive disorder Problem details: mixed etiology (Alzheimer's and frontotemporal disease), moderate, with behavioral disturbance Status: Acute (2) Dyslipidemia Status: Acute (3) Hypertension Status: Acute (4) Diabetes mellitus, type II Status: Acute (5) COPD (chronic obstructive pulmonary disease) Status: Acute (6) Hypothyroidism Status: Acute (7) Delirium Problem details: due to UTI (new-onset 03/06) Status: Acute (8) Urinary tract infection Status: Acute Hospital Course Summary Disclaimer: The visit summary below is not to be considered part of the above Progress Note. Hospital Course: At admission: Lorazepam tapered from 1mg PO TID to 0.5mg PO TID with plan to further taper/discontinue. 03/01/17 Pt was confused and agitated last night and appears to be sundowning as she does well during the day. Will continue use of PRN's for now and monitor behavior. 03/02/17 Pt improved. No behaviors noted. Continue current care. 03/03/17 Psych: Will taper Ativan to 0.5mg PO at HS only and monitor response; will likely need additional medication due to sundowning. 03/04/17 Psych: Will order UA due to concern for delirium due to UTI. 03/05/17 Psych: UTI being treated with Rocephin; will schedule Zyprexa Zydis 2.5mg PO with dinner to target sundowning, overnight agitation. Continue to monitor and re-evaluate necessity as delirium due to UTI resolves. 03/06/17 Psych: Agitation, combativeness improving with treatment of UTI and resolving delirium. Continue to monitor and assess whether Zyprexa continues to be necessary afterwards for sundowning. Will need to evaluate patient for SNU. 03/07- Overall appears to be medically stable. Reviewed UA culture from 03/04 which reveled mixed yessenia. No treatment required. BP appear mostly well controlled BGM under good control Psych notes reviewed 03/07/17 Psych: Will increase Zyprexa to 5mg at HS. Monitor mood, behavior and response to treatment. May consider decreasing back to 2.5mg as delirium resolves though she still has underlying sundowning. 03/08/17 Some agitation with cares and irritability in the AM but improved. Continue current care 03/09/17 Remains agitated at times. Continue current care Plan - 03/09/17 Overall, Linda appears to be medically stable. Anticipate discharge in near future. Continue psychiatric care per Dr. Lucio and team. Continue to provide safe and supportive environment. UA culture from 03/04 reveled mixed yessenia. No additional treatment indicated. Will recheck CBC and BMP in AM to monitor blood counts, electrolytes and renal function. 03/10/17 Psych: Plan to discontinue scheduled/PRN Ativan in case it is disinhibiting patient and allow only PRN Zyprexa for agitation. 03/11/17 Psych: Will schedule Zyprexa Zydis 2.5mg PO at 1600 (before patient tends to upregulate) and 5mg at HS. When scheduled all with dinnertime, patient was falling asleep too early and then awakening in the weight reducing technician. Plan - 03/12/17 Overall, Linda appears to be medically stable. Anticipate discharge in near future. Continue psychiatric care per Dr. Lucio and team. Continue to provide safe and supportive environment. Patient reported to continue have issues with sundowning. Repeat labs on 03/12/17 revealed new mild anemia with hemoglobin 11.5. No obvious signs of bleeding. Will continue to monitor periodically. 03/12/17 Psych: Continue current care and begin to make discharge arrangements. Patient will discharge home with per son/DPOA's wishes though we have recommended placement. They agree to provide 24/7 supervision for safety. 03/13/17 Psych: Patient is doing well. Plan to discharge to home tomorrow with 24 /7 supervision for safety, home health services to assist /optical coating technician.
== END 2017-03-14 13:10 | disposition home or self-care (01) | DRG 57 ==
LOC: GEN 16:15
PROVIDERS: ADMIT Psychiatry & Neurology Psychiatry; ATTEND Psychiatry & Neurology Psychiatry